=== PATIENT | male | born 1950 | race Caucasian/White ===

== ENCOUNTER 2016-12-14 14:02 | Emergency (ER) | payer MEDICARE, OTHER ==
[2016-12-14 14:10] VITALS: BP 155/83
--- NOTE | 2016-12-14 14:17 | UC ---
Laceration HPI - HPI Summary HPI Summary: patient was washing dishes and cut his finger on glass, it was a clean cut that lifted a flap of skin from the finger, flattens easily and edges well approximated. - History Of Current Complaint Chief Complaint: UCLaceration Stated Complaint: RIGHT INDEX FINGER LACERATION Time Seen by Provider: 12/14/16 14:12 Laceration Location: Finger - right index Mechanism Of Injury: Sharp Trauma Onset/Duration: Sudden Onset Severity: Mild Pain Intensity: 3 Pain Scale Used: 0-10 Numeric Aggravating Factors: Nothing Related History: Dominant Hand Right - Allergies/Home Medications Allergies/Adverse Reactions: Allergies Allergy/AdvReac Type Severity Reaction Status Date / Time No Known Allergies Allergy Verified 12/14/16 14:10 Home Medications: Home Medications Sertraline* [Zoloft*] 25 mg PO DAILY 12/14/16 [History Confirmed 12/14/16] glipiZIDE TAB.XL* [Glucotrol XL*] 5 mg PO DAILY 12/14/16 [History Confirmed ] metFORMIN* [Glucophage*] 500 mg PO BID 12/14/16 [History Confirmed 12/14/16] PMH/Surg Hx/FS Hx/Imm Hx Endocrine History Of: Reports: Diabetes Cardiovascular History Of: Reports: Hypertension - Surgical History Surgical History: Yes Surgery Procedure, Year, and Place: back surgery. carpal tunnel. right wrist gyst removal. sinus surgery - Family History Known Family History: Positive: Diabetes - Social History Alcohol Use: None Substance Use Type: None Smoking Status (MU): Never Smoked Tobacco Review of Systems Constitutional: Negative Skin: Other - laceration Eyes: Negative ENT: Negative Respiratory: Negative Cardiovascular: Negative Gastrointestinal: Negative Genitourinary: Negative Motor: Negative Neurovascular: Negative Musculoskeletal: Negative Neurological: Negative Psychological: Negative All Other Systems Reviewed And Are Negative: Yes Physical Exam Triage Information Reviewed: Yes Appearance: Well-Appearing, Well-Nourished, Pain Distress Vital Signs: Initial Vital Signs Temp 98.6 F 12/14/16 14:07 Pulse 77 12/14/16 14:07 Resp 14 12/14/16 14:07 BP 155/83 12/14/16 14:07 Pulse Ox 100 12/14/16 14:07 Vital Signs Reviewed: Yes Eye Exam: Normal Eyes: Positive: Conjunctiva Clear ENT Exam: Normal ENT: Positive: Hearing grossly normal, Pharyngeal erythema, TMs normal Dental Exam: Normal Neck exam: Normal Neck: Positive: Supple, Nontender, No Lymphadenopathy Respiratory Exam: Normal Respiratory: Positive: Chest non-tender, Lungs clear, Normal breath sounds Cardiovascular Exam: Normal Cardiovascular: Positive: RRR, No Murmur, Pulses Normal Abdominal Exam: Normal Abdomen Description: Positive: Nontender, No Organomegaly, Soft Bowel Sounds: Positive: Present Musculoskeletal Exam: Normal Musculoskeletal: Positive: Strength Intact, ROM Intact, No Edema Neurological Exam: Normal Neurological: Positive: Alert, Muscle Tone Normal Psychological Exam: Normal Skin Exam: Normal Laceration Repair - Laceration Repair 1 Description: Linear Laceration Size After Repair: Length (cm) - 2 cm Modified For Repair: Yes Cleansing Completed Via Routine Prep: Yes Irrigation With Pressure Irrigation Device: Yes Closure Material: Skin Adhesive, SteriStrips - 2 Closure Method: Single Layer Suture Of: Skin Laceration Course/Dx - Course/Dx Course Of Treatment: hx obtained, exam performed, skin gule and steri strips applied. - Differential Dx - Laceration/Wound Differental Diagnoses: Cellulitis, Laceration Provider Diagnoses: laceration Discharge - Discharge Plan Condition: Stable Disposition: HOME Patient Education Materials: Finger Laceration (ED) Additional Instructions: change the dressing daily, or more often if soiled. Allow the steri strips and glue to come off on its own. follow up with any signs of infections, redness, swelling, increase in pain, drainage or fever.
== END 2016-12-14 14:32 | disposition home or self-care (01) ==
LOC: UCCORT 14:02
DX: S61.210A Laceration without foreign body of right index finger without damage to nail, initial encounter (principal); E11.9 Type 2 diabetes mellitus without complications; W25.XXXA Contact with sharp glass, initial encounter; Y93.G1 Activity, food preparation and clean up; Y92.9 Unspecified place or not applicable
CPT/HCPCS: 99211; G0463

== ENCOUNTER 2018-01-23 12:17 | Inpatient (IN) | payer MEDICARE ==
[2018-01-23 13:27] LABS: ABS Basophils 0.1 10^3/ul (0-0.2); ABS Eosinophils 0.1 10^3/ul (0-0.6); ABS Lymphocytes 0.9 10^3/ul (1.0-4.8); ABS Monocytes 0.6 10^3/ul (0-0.8); ABS Neutrophils 8.4 10^3/ul (1.5-7.7); ABS Nucleated RBC 0 10^3/ul; Hematocrit 41 % (42-52); Hemoglobin 13.7 g/dl (14.0-18.0); Mean Corpuscular HGB Conc 34 g/dl (31-36); Mean Corpuscular Hemoglobin 30 pg (27-31); Mean Corpuscular Volume 90 fL (80-94); Mean Platelet Volume 8 um3 (7.4-10.4); Nucleated Red Blood Cells % 0; Platelet Count 247 10^3/ul (150-450); Red Blood Count 4.54 10^6/ul (4.0-5.4); Red Cell Distribution Width 13 % (10.5-15); White Blood Count 10.2 10^3/ul (3.5-10.8)
--- NOTE | 2018-01-23 13:29 | RAD ---
Indication: Trauma, head injury. CT of the brain was performed without IV contrast. Ventricular structures are midline. No midline shift is noted. The extra-axial spaces are unremarkable. There is no evidence of intracranial mass or hemorrhage. The bony calvaria is otherwise unremarkable. Mastoid air cells are unremarkable Air-fluid level is noted in the right maxillary sinus. Soft tissue swelling over the right maxillary sinus is noted and right eyelid. I cannot totally exclude a fracture of the inferior wall of the right orbit. Correlation with facial CT is suggested. Zygomatic arch is unremarkable. IMPRESSION: No intracranial mass or hemorrhage. Air-fluid level in the right maxillary sinus is noted. I cannot exclude fracture of the right inferior orbit with soft tissue swelling over the right maxillary sinus. Correlation with facial bone CT may be indicated.
[2018-01-23 13:32] LABS: INR 0.87 (0.77-1.02)
--- NOTE | 2018-01-23 13:36 | RAD ---
Indication: Neck pain and injury. CT of the cervical spine was obtained in the axial plane. Sagittal and coronal reconstructed images were obtained. The skull base demonstrates no fracture. There may be some fluid in the left mastoid air cells consistent with mastoid sinusitis. No fracture is noted. C1 ring is intact without fracture. Degenerative changes of the atlantoaxial joint is noted. The vertebral bodies appear normal in height. There is bilateral uncovertebral joint hypertrophy at C3-C4 and C4-C5 narrowing both intervertebral foramen. Bilateral uncovertebral joint hypertrophy C5-C6 and C6-C7 is noted. No fracture is noted. Spinal canal appears to be intact. Lung apices are unremarkable. IMPRESSION: There is no fracture of the cervical spine noted. There is suggestion of some left-sided mastoid sinusitis noted. Bilateral uncovertebral joint hypertrophy at multiple levels is noted.
[2018-01-23 13:53] LABS: EGFR Non-African American 59.6 (>60)
[2018-01-23] MEDS ORDERED: Ondansetron INJ* 2 MG/ML VIAL IV ONE ×2 (14:24→15:45)
[2018-01-23] MEDS ORDERED: Morphine INJ* 4 MG/ML 1 ML CARPUJECT IV ONE (15:15)
[2018-01-23] MEDS ORDERED: Morphine INJ* 4 MG/ML 1 ML SYRINGE (NEW SYRINGE VERSION) ONE (15:27)
[2018-01-23 15:33] LABS: Urine Appearance Clear; Urine Blood 1+ (Negative); Urine Color Straw; Urine Ketones Trace (Negative); Urine Protein Negative (Negative); Urine Specific Gravity 1.013 (1.010-1.030); Urine Urobilinogen Negative (Negative)
--- NOTE | 2018-01-23 16:05 | RAD ---
INDICATION: Shoulder pain after a fall COMPARISON: None. TECHNIQUE: 4 views of the right shoulder were obtained. FINDINGS: The adequately corticated bones are in normal alignment. Joint spaces appear maintained. No fracture, dislocation or focal bony abnormality is seen. Overlying the superior lateral right humeral head is a linear focus of calcium measuring 3 mm in length. IMPRESSION: 3 MM LENGTH FOCUS OF CALCIUM OVERLYING THE SUPERIOR LATERAL HUMERAL HEAD COULD BE SEEN IN THE SETTING OF CALCIFIC TENDINITIS. THERE IS NO RADIOGRAPHICALLY APPARENT FRACTURE OR DISLOCATION. If the patient's symptoms persist, follow-up imaging is recommended.
[2018-01-23] MEDS ORDERED: PROCHLORPERAZINE INJ 5 MG/ML 2 ML VIAL IV PRN ×2 (16:56→18:02)
[2018-01-23] MEDS ORDERED: NS 0.9% 1000 ML* 1,000 ML IV ONE (17:19)
[2018-01-23] MEDS ORDERED: hydrALAZINE IV* 20 MG/ML VIAL IV SLOW PU PRN ×2 (18:02→23:37)
[2018-01-23] MEDS ORDERED: Dextrose 50% Syringe 50 ML* 25 GM/50 ML SYRINGE IV PUSH PRN (18:05)
[2018-01-23] MEDS ORDERED: NS 0.9% 1000 ML* 1,000 ML IV SCH (18:15)
--- NOTE | 2018-01-23 18:35 | RAD ---
INDICATION: Possible facial bone injury COMPARISON: CT brain same date TECHNIQUE: Axial source images were acquired from the vertex of the mandible through the orbits. Coronal and sagittal reconstructed images were acquired. FINDINGS: Bones: There is no acute facial bone fracture. Orbits: The globes and intraconal structures appear intact. The optic nerves are symmetric. Extraocular muscles appear normal. There is no intraconal inflammatory change or retrobulbar mass.. Paranasal sinuses: There are findings of acute and chronic sinusitis. There is mucosal thickening in the right maxillary antrum with an air-fluid level. There is opacification multiple ethmoid air cells. There is bilateral frontal sinus mucosal thickening with short air-fluid level. There is sphenoid sinus mucoperiosteal thickening there is narrowing the right ostiomeatal complex. There is post surgical change or there is a defect in the medial wall left maxillary antrum with free communication with the nasal passageway. There is no normal left sided ostiomeatal complex. Brain: There are no acute abnormalities of the visualized brain parenchyma. Soft tissues: Normal Other: None The visualized soft tissue elements about the neck appear normal. IMPRESSION: PANSINUSITIS WITH ACUTE AND CHRONIC FINDINGS. NO ACUTE FACIAL BONE FRACTURE.
[2018-01-23] MEDS ORDERED: amLODIPine TAB* 5 MG PO SCH (19:00)
--- NOTE | 2018-01-23 19:09 | RAD ---
INDICATION: Traumatic left thumb fracture COMPARISON: None TECHNIQUE: AP, lateral, and oblique views were obtained. FINDINGS: There is a comminuted, intra-articular fracture involving the distal phalanx of the thumb. There is associated soft tissue swelling. 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 There is soft tissue swelling at the fracture site. IMPRESSION: FRACTURE AT THE PIP JOINT DESCRIBED
--- NOTE | 2018-01-23 19:25 | ED ---
Mark Walton Stephanie, scribed for Johny Lynn MD on 01/23/18 at 1309 . Complex/Multi-Sys Presentation - HPI Summary HPI Summary: The pt is a 67 y/o M BIBA to the ED with c/o R shoulder pain. The pt had [place]itnessed [place] [employer] [place]. Symptoms include memory loss, GALLEGOS, nausea, epistaxis and ecchymotic R eye. - History Of Current Complaint Chief Complaint: EDHeadInjury Time Seen by Provider: 01/23/18 12:36 Hx Obtained From: Patient Onset/Duration: Sudden Onset - s/p fall, Still Present Timing: Constant Location: Pain At: - R shoulder Associated Signs And Symptoms: Positive: Headache, Nausea, Recent Trauma - unwitnessed fall - Allergies/Home Medications Allergies/Adverse Reactions: Allergies Allergy/AdvReac Type Severity Reaction Status Date / Time Penicillins Allergy Unknown See Comment Verified 01/23/18 12:44 codeine Allergy Unknown Verified 01/23/18 18:15 Reaction Details Home Medications: Home Medications Acetaminophen [Acetaminophen Extra Strength] 500 mg PO Q4HR PRN 01/23/18 [ History Confirmed 01/23/18] Aspirin EC Low Dose* [Ecotrin EC Low Dose 81 MG*] 81 mg PO DAILY 01/23/18 [ History Confirmed 01/23/18] Atorvastatin* [Lipitor*] 40 mg PO DAILY 01/23/18 [History Confirmed 01/23/18] Cetirizine* [ZyrTEC 10 MG TAB*] 10 mg PO DAILY PRN 01/23/18 [History Confirmed 01/23/18] Docusate CAP* [Colace Cap*] 100 mg PO DAILY PRN 01/23/18 [History Confirmed ] Ferrous Sulfate TAB* 325 mg PO DAILY 01/23/18 [History Confirmed 01/23/18] Fluticasone NASAL SPRAY 50MCG* [Flonase NASAL SPRAY 50MCG*] 2 spray BOTH NARES DAILY 01/23/18 [History Confirmed 01/23/18] Tamsulosin CAP* [Flomax CAP*] 0.4 mg PO DAILY 01/23/18 [History Confirmed ] diPHENhydraMINE PO* [Benadryl PO 25 MG TAB*] 25 mg PO DAILY PRN 01/23/18 [ History Confirmed 01/23/18] glipiZIDE TAB* [Glucotrol TAB*] 5 mg PO BID 01/23/18 [History Confirmed 01/23/18 ] PMH/Surg Hx/FS Hx/Imm Hx Endocrine/Hematology History: Reports: Hx Diabetes Cardiovascular History: Reports: Hx Hypertension - Surgical History Surgery Procedure, Year, and Place: back surgery. carpal tunnel. right wrist gyst removal. sinus surgery Infectious Disease History: No Infectious Disease History: Denies: Hx Clostridium Difficile, Hx Hepatitis, Hx Human Immunodeficiency Virus (HIV), Hx of Known/Suspected MRSA, Hx Shingles, Hx Tuberculosis, Hx Known/ Suspected VRE, Hx Known/Suspected VRSA, History Other Infectious Disease, Traveled Outside the [place] in Last 30 Days - Family History Known Family History: Positive: Diabetes - Social History Occupation: Employed Full-time Lives: With Family Alcohol Use: None Substance Use Type: Reports: None Smoking Status (MU): Never Smoked Tobacco Review of Systems Negative: Fever Positive: Other - ecchymotic R eye Positive: Epistaxis Positive: Nausea Positive: Other - R shoulder pain Neurological: Other - memory loss Positive: Headache All Other Systems Reviewed And Are Negative: Yes Physical Exam - Summary Physical Exam Summary: Appearance: The patient is well-nourished in no acute distress and in no acute pain. Skin: The skin is warm and dry and skin color reflects adequate perfusion. HEENT: R periorbital hematoma. Abrasion on R parietal scalp. The pupils are equal and reactive. The conjunctivae are clear and without drainage. Nares are patent and without drainage. Mouth reveals moist mucous membranes and the throat is without erythema and exudate. The external ears are intact. The ear canals are patent and without drainage. The tympanic membranes are intact. Neck: the neck is supple with full range of motion and non-tender. There are no carotid bruits. There is no neck vein distension. Respiratory: Chest is non-tender. Lungs are clear to auscultation and breath sounds are symmetrical and equal. Cardiovascular: Heart is regular rate and rhythm. There is no murmur or rub auscultated. There is no peripheral edema and pulses are symmetrical and equal. Abdomen: The abdomen is soft and non-tender. There are normal bowel sounds heard in all four quadrants and there is no organomegaly palpated. Musculoskeletal: There is no back tenderness noted. Extremities are non-tender with full range of motion. There is good capillary refill. There is no peripheral edema or calf tenderness elicited. Neurological: Patient is alert and oriented to person, place and time. The patient has symmetrical motor strength in all four extremities. Cranial nerves are grossly intact. Deep tendon reflexes are symmetrical and equal in all four extremities. Psychiatric: The patient has an appropriate affect and does not exhibit any anxiety or depression Triage Information Reviewed: Yes Vital Signs On Initial Exam: Initial Vitals Temp Pulse Resp BP Pulse Ox 98.6 F 78 12 194/88 100 01/23/18 12:22 01/23/18 12:22 01/23/18 12:22 01/23/18 12:22 01/23/18 12:22 Vital Signs Reviewed: Yes Diagnostics - Vital Signs Vital Signs Temp Pulse Resp BP Pulse Ox 01/23/18 12:22 98.6 F 78 12 194/88 100 - Laboratory Lab Results: Lab Results 01/23/18 01/23/18 01/23/18 Range/Units 13:16 13:16 13:16 WBC 10.2 (3.5-10.8) 10^3/ul RBC 4.54 (4.0-5.4) 10^6/ul Hgb 13.7 L (14.0-18.0) g/dl Hct 41 L (42-52) % MCV 90 (80-94) fL MCH 30 (27-31) pg MCHC 34 (31-36) g/dl RDW 13 (10.5-15) % Plt Count 247 (150-450) 10^3/ul MPV 8 (7.4-10.4) um3 Neut % (Auto) 82.8 (38-83) % Lymph % (Auto) 9.0 L (25-47) % [place] % (Auto) 5.9 (0-7) % Eos % (Auto) 1.0 (0-6) % Baso % (Auto) 1.3 (0-2) % Absolute Neuts (auto) 8.4 H (1.5-7.7) 10^3/ul Absolute Lymphs (auto) 0.9 L (1.0-4.8) 10^3/ul Absolute Monos (auto) 0.6 (0-0.8) 10^3/ul Absolute Eos (auto) 0.1 (0-0.6) 10^3/ul Absolute Basos (auto) 0.1 (0-0.2) 10^3/ul Absolute Nucleated RBC 0 10^3/ul Nucleated RBC % 0 INR (Anticoag Therapy) 0.87 (0.77-1.02) Sodium 132 L (133-145) mmol/L Potassium 4.3 (3.5-5.0) mmol/L Chloride 100 L (101-111) mmol/L Carbon Dioxide 21 L (22-32) mmol/L Anion Gap 11 (2-11) mmol/L BUN 27 H (6-24) mg/dL Creatinine 1.21 H (0.67-1.17) mg/dL Est GFR ( Amer) 76.7 (>60) Est GFR (Non-Af Amer) 59.6 (>60) BUN/Creatinine Ratio 22.3 H (8-20) Glucose 187 H (70-100) mg/dL POC Glucose (mg/dL) (70-100) mg/dL Lactic Acid (0.5-2.0) mmol/L Calcium 9.6 (8.6-10.3) mg/dL Magnesium 1.9 (1.9-2.7) mg/dL Total Bilirubin 0.50 (0.2-1.0) mg/dL AST 27 (13-39) U/L ALT 21 (7-52) U/L Alkaline Phosphatase 117 H (34-104) U/L Troponin I 0.01 (<0.04) ng/mL Total Protein 7.8 (6.4-8.9) g/dL Albumin 4.4 (3.2-5.2) g/dL Globulin 3.4 (2-4) g/dL Albumin/Globulin Ratio 1.3 (1-3) TSH 6.12 H (0.34-5.60) mcIU/mL Free T4 0.68 (0.61-1.12) ng/dL Thyroxine (T4) 6.69 (6.09-12.23) mcg/mL Free T3 3.50 (2.5-3.9) pg/mL Total T3 1.19 (0.87-1.78) ng/mL Urine Color Urine Appearance Urine pH (5-9) Ur Specific [place] (1.010-1.030) Urine Protein (Negative) Urine Ketones (Negative) Urine Blood (Negative) Urine Nitrate (Negative) Urine Bilirubin (Negative) Urine Urobilinogen (Negative) Ur Leukocyte Esterase (Negative) Urine WBC (Auto) (Absent) Urine RBC (Auto) (Absent) Urine Bacteria (Absent) Urine Glucose (Negative) 01/23/18 01/23/18 01/23/18 Range/Units 13:16 15:23 17:28 WBC (3.5-10.8) 10^3/ul RBC (4.0-5.4) 10^6/ul Hgb (14.0-18.0) g/dl Hct (42-52) % MCV (80-94) fL MCH (27-31) pg MCHC (31-36) g/dl RDW (10.5-15) % Plt Count (150-450) 10^3/ul MPV (7.4-10.4) um3 Neut % (Auto) (38-83) % Lymph % (Auto) (25-47) % [place] % (Auto) (0-7) % Eos % (Auto) (0-6) % Baso % (Auto) (0-2) % Absolute Neuts (auto) (1.5-7.7) 10^3/ul Absolute Lymphs (auto) (1.0-4.8) 10^3/ul Absolute Monos (auto) (0-0.8) 10^3/ul Absolute Eos (auto) (0-0.6) 10^3/ul Absolute Basos (auto) (0-0.2) 10^3/ul Absolute Nucleated RBC 10^3/ul Nucleated RBC % INR (Anticoag Therapy) (0.77-1.02) Sodium (133-145) mmol/L Potassium (3.5-5.0) mmol/L Chloride (101-111) mmol/L Carbon Dioxide (22-32) mmol/L Anion Gap (2-11) mmol/L BUN (6-24) mg/dL Creatinine (0.67-1.17) mg/dL Est GFR ( Amer) (>60) Est GFR (Non-Af Amer) (>60) BUN/Creatinine Ratio (8-20) Glucose (70-100) mg/dL POC Glucose (mg/dL) 216 H (70-100) mg/dL Lactic Acid 2.5 H* (0.5-2.0) mmol/L Calcium (8.6-10.3) mg/dL Magnesium (1.9-2.7) mg/dL Total Bilirubin (0.2-1.0) mg/dL AST (13-39) U/L ALT (7-52) U/L Alkaline Phosphatase (34-104) U/L Troponin I (<0.04) ng/mL Total Protein (6.4-8.9) g/dL Albumin (3.2-5.2) g/dL Globulin (2-4) g/dL Albumin/Globulin Ratio (1-3) TSH (0.34-5.60) mcIU/mL Free T4 (0.61-1.12) ng/dL Thyroxine (T4) (6.09-12.23) mcg/mL Free T3 (2.5-3.9) pg/mL Total T3 (0.87-1.78) ng/mL Urine Color Straw Urine Appearance Clear Urine pH 8.0 (5-9) Ur Specific [place] 1.013 (1.010-1.030) Urine Protein Negative (Negative) Urine Ketones Trace H (Negative) Urine Blood 1+ H (Negative) Urine Nitrate Negative (Negative) Urine Bilirubin Negative (Negative) Urine Urobilinogen Negative (Negative) Ur Leukocyte Esterase Negative (Negative) Urine WBC (Auto) Trace(0-5/hpf) (Absent) Urine RBC (Auto) 2+(6-10/hpf) H (Absent) Urine Bacteria Absent (Absent) Urine Glucose 1+(50 mg/dl) H (Negative) Result Diagrams: 01/23/18 13:16 01/23/18 13:16 Lab Statement: Any lab studies that have been ordered have been reviewed, and results considered in the medical decision making process. - CT Brain CT Interpretation: Positive (See Comments) CT Interpretation Completed By: Radiologist - No intracranial mass or hemorrhage. Air-fluid level in the right maxillary sinus is noted. I cannot exclude fracture of the right inferior orbit with soft tissue swelling over the right maxillary sinus. Correlation with facial bone CT may be indicated. Cervical Spine CT Interpretation: Positive (See Comments) CT Interpretation Completed By: Radiologist - There is no fracture of the cervical spine noted. There is suggestion of some left-sided mastoid sinusitis noted. Bilateral uncovertebral joint hypertrophy at multiple levels is noted. - EKG 13:15 Cardiac Rate: NL EKG Rhythm: Sinus Rhythm - 74 BPM EKG Interpretation: normal EKG Complex Multi-Symp Course/Dx Course Of Treatment: Mr. Cooley had a significant fall on the ice today. He was shoveling snow and doesn't remember what happened so syncope is still in the differential. He presented with concussive symptoms and his CT was negative. He didn't improve much here with medications and fluids and I have asked the hospitalist group to see him. - Diagnoses Provider Diagnoses: Concussion - Physician Notifications Discussed Care Of Patient With: Sudhir Middleton - Suggests to admit the pt. Time Discussed With Above Provider: 16:51 Discharge - Discharge Plan Condition: Stable Disposition: ADMITTED TO [facility] The documentation as recorded by the Mark becerra Stephanie accurately reflects the service I personally performed and the decisions made by me, Johny Lynn MD.
[2018-01-23] MEDS: Ondansetron INJ* 2 MG/ML VIAL IV PRN (19:33)
[2018-01-23] MEDS ORDERED: amLODIPine TAB* 5 MG PO ONE (20:59)
--- NOTE | 2018-01-24 02:54 | HP ---
CC: Shelli Addison NP * HISTORY AND PHYSICAL: DATE OF ADMISSION: 01/23/18 PRIMARY CARE PROVIDER: Shelli Addison NP ATTENDING PHYSICIAN WHILE IN THE HOSPITAL: Andre Choi MD * (report dictated by Filemon Diaz NP) CHIEF COMPLAINT: Fall. HISTORY OF PRESENT ILLNESS: Mr. Cooley is a 67-year-old male patient. He has a history of Dubois's esophagus, hypertension, diabetes, hyperlipidemia, and depression. He comes in today. He says that he was working at the local [employer]. He had an episode where he was shoveling and he fell. He does not really recall the fall. He remembers coming over in the ambulance and coming in to the hospital. He thinks the paymaster of purses called the ambulance. He is not quite sure. The patient states prior to the episode, he did not have any chest pain or shortness of breath. There is a question of whether or not he did really pass out. He denies any recent fevers or chills. There has been no nausea or vomiting with the exception after the fall today, he has vomited about 3 times here in the ED. There have been no reports of again chest pain recently. He states in the last couple of days, he has been feeling himself. The daughter, who saw the patient before he went to work today, said that he seemed to be himself but did bring a concern up. She said last night she may have noticed a facial droop, but did not notice anything today. The patient states that he does feel somewhat dizzy. He states it stayed the same with position change, but he denied having any sense of visual changes. He denied having any weakness to one side. No more facial droop was reported by the . Again according to the , he is at his baseline. She states that he has not had any recent change in medications and there have been no reports of dysuria or frequency, no history of syncope in the past. He came in to the ED today because of the possible syncopal episode and the fact that he fell and there is concern that he may actually have the postconcussive syndrome. We were asked to evaluate for admission. PAST MEDICAL HISTORY: Significant for: 1. Dubois's. 2. Hypertension. 3. Hyperlipidemia. 4. Diabetes. 5. Depression. PAST SURGICAL HISTORY: 1. The patient has had back surgery. 2. He has had cyst removed out of his neck. HOME MEDICATIONS: Include: 1. Benadryl 25 mg p.o. daily as needed. 2. Aspirin 81 mg daily. 3. Tylenol Extra Strength 500 mg every 4 hours as needed. 4. Glipizide 5 mg p.o. b.i.d. 5. Flomax 0.4 mg p.o. daily. 6. Flonase 2 sprays both nares daily. 7. Ferrous sulfate 325 mg p.o. daily. 8. Colace 100 mg p.o. daily as needed. 9. Zyrtec 10 mg p.o. daily as needed. 10. Lipitor 40 mg p.o. daily. ALLERGIES TO MEDICATIONS: Include CODEINE, PENICILLIN here in the ED, but he denied this. FAMILY HISTORY: Mother had hypertension. Father had history of cancer. SOCIAL HISTORY: He is a former smoker. He drinks alcohol. Surrogate decision maker is his . REVIEW OF SYSTEMS: There is no documented fever. He denied any significant weight change. There is no double vision. There is no ear discharge. He denies having any rhinorrhea. No sore throat. No thyroid enlargement. He denied having any chest pain. There is no orthopnea. There is no nocturnal dyspnea. He denies having any abdominal pain. There was no nausea. There is vomiting now after the fall, but no dysuria, no frequency. There was no seizure. There is a question of loss of consciousness. No pruritus and no skin ulcerations. Review of 14 systems completed, all others negative. PHYSICAL EXAMINATION GENERAL: At this time, Mr. Cooley is a 67-year-old male patient. He is sitting in the ED stretcher. He does not appear to be in any acute distress. VITAL SIGNS: Blood pressure 184/85, pulse 79, respirations 18, O2 sat 98%, temperature 98.6. HEENT: Head: He does have an area of ecchymosis noted to his right orbital area. Eyes: Pupils reactive to light. EOMs were intact. Sclerae anicteric and not pale. Throat: Oral mucosa appears to be moist. No oropharyngeal erythema. NECK: Supple. LUNGS: Clear to auscultation bilaterally. No wheezes, rales, or rhonchi. HEART: Sounds S1, S2. Regular rate and rhythm. No murmurs, rubs, or gallops. ABDOMEN: Soft, flat, nontender. Bowel sounds present. EXTREMITIES: Pulses were 2+ throughout. Moving all 4 extremities with 5/5 strength. He does have ecchymosis noted to his left thumb. NEUROLOGIC: The patient is awake. He is alert. He is now oriented x3. He does not clearly recall all the details of the fall. He does remember shoveling and then fall. He knows he is here for fall. On exam, he had no facial drooping. Lyqkwu-po-[id number] was intact bilaterally. Utti-dl-zaof intact bilaterally. No pronator drift. Cranial nerves were intact. There were no obvious gross focal deficits. SKIN: Intact. LABORATORY DATA/DIAGNOSTIC STUDIES: Labs, WBC 10.2, RBC of 4.54, hemoglobin of 13.7, hematocrit 41, platelet count 247. INR 0.87. Sodium 132, potassium 4.3, chloride 100, bicarb 21, BUN 27, creatinine 1.21, which is slightly up from his baseline, glucose 187. Lactic 2.5. Calcium 9.6. Mag 1.9. Total bili 0.5, AST 27, ALT 21, alk phos 117. Troponin 0.01. Albumin of 4.4. TSH of 6.12. Urine showed trace ketones, 1+ blood, 2+ rbc's, 1+ glucose. He had multiple imaging here in the ED starting out brain CT, showed no intracranial mass or hemorrhage. Air fluid level in the right maxillary sinus noted. I cannot exclude fracture of the right inferior orbit with soft tissue swelling over the right maxillary sinus. Correlate with facial bone CT as it may be indicated. CT cervical spine, no fracture is noted of the cervical spine. There is suggestion of some left-sided mastoid sinusitis, bilateral. Uncovertebral joint hypertrophy of multiple levels noted. Shoulder x-ray today showed 3 mm length focus of calcium overlying the superior lateral humeral head. It could be seen in the setting of calcified tendinitis. There is no radiographically apparent fracture or dislocation. EKG obtained shows a normal sinus rhythm with a PAC, no ST elevations or T wave inversions were noted. Reviewed to the previous EKG, it is similar. Old medical records were reviewed. ASSESSMENT AND PLAN: Mr. Cooley is a 67-year-old male patient coming in to the ED today with complaints of a fall, question of syncope. He will be admitted under observation status for: 1. Fall, syncope. At this point, I will go ahead and check an echo. Place the patient on telemetry. We will get orthostatic blood pressures and continue to monitor him. We will also get neuro checks. 2. Question of facial droop. Again, he is neurologically intact. At this point, he is complaining of dizziness, makes me concern, may be he had dizziness and that is why he fell. My plan would to be go ahead and get an MRI of the brain, neuro checks. If the MRI is positive, I will get a formal Neurology consult and we will consider doing a CTA of the head and neck. We will continue to monitor for the time being. I will get neuro checks. He is on aspirin already. We are checking lipids in the morning. 3. Altered mental status. I think he probably has postconcussive syndrome from the fall. He did hit his head pretty hard. It looks like he has got again pretty good ecchymotic area to the right orbit. I am going to get a CT of that facial bone to make sure he does not have any fracture. If he does, we will get in touch with either ENT or Facial Surgery. 4. Dubois's esophagus. Continue PPI therapy. 5. Hypertension. His blood pressures are well controlled here. It is 185 systolic. When he came in, it was in the 200s. I am going to give him Norvasc , p.r.n. hydralazine. We will follow. 6. Diabetes. Lispro sliding scale has been ordered. 7. Hyperlipidemia. Continue statin therapy. 8. Depression. Continue supportive care. 9. DVT prophylaxis. He will be placed on SCDs. 10. Code status. Full code. 11. Fluids, electrolytes, and nutrition. Clear liquid diet because of the nausea and vomiting for the time being. 12. Nausea, vomiting. Again, I suspect this is probably related to again concussion. We will follow. His abdominal exam was benign. 13. Dehydration. Again, he appears mildly dehydrated. He did get some IV fluids here in the ED. We will repeat his BUN and creatinine tomorrow and his lytes. 14. Elevated TSH. I did check T3, T4 and free T3, T4 as well. TIME SPENT: Time spent on admission 60 minutes, greater than half the time was spent [id number] with the patient obtaining my history and physical; other half time was spent going over the plan of care with the patient and implementing plan of care. I did discuss the plan of care with my attending, Dr. Choi; he is in agreement. FILEMON DIAZ, MEDICAL RECEPTIONIST [id number]/CPS #: [id number] SHRAVAN
[2018-01-24 06:56] LABS: ABS Basophils 0.1 10^3/ul (0-0.2); ABS Eosinophils 0 10^3/ul (0-0.6); ABS Lymphocytes 0.6 10^3/ul (1.0-4.8); ABS Neutrophils 13.3 10^3/ul (1.5-7.7); ABS Nucleated RBC 0 10^3/ul; Eosinophil % 0 % (0-6); Hematocrit 41 % (42-52); Hemoglobin 13.6 g/dl (14.0-18.0); Lymphocyte % 4.1 % (25-47); Mean Corpuscular HGB Conc 34 g/dl (31-36); Mean Corpuscular Hemoglobin 30 pg (27-31); Mean Corpuscular Volume 91 fL (80-94); Mean Platelet Volume 8 um3 (7.4-10.4); Nucleated Red Blood Cells % 0.1; Platelet Count 292 10^3/ul (150-450); Red Blood Count 4.49 10^6/ul (4.0-5.4); Red Cell Distribution Width 14 % (10.5-15); White Blood Count 14.9 10^3/ul (3.5-10.8)
[2018-01-24 07:06] LABS: EGFR Non-African American 64.5 (>60)
[2018-01-24] MEDS: Tamsulosin CAP* 0.4 MG PO SCH (08:42)
[2018-01-24] MEDS: amLODIPine TAB* 5 MG PO SCH (08:42)
[2018-01-24] MEDS: Insulin LISPRO* 1 UNITS UNIT SUBCUT SCH ×3 (08:42→18:09)
[2018-01-24] MEDS: Ferrous Sulfate TAB* 325 MG PO SCH (08:42)
[2018-01-24] MEDS: Atorvastatin* 40 MG TAB PO SCH (08:42)
[2018-01-24] MEDS: Acetaminophen TAB* 325 MG PO PRN ×2 (08:47→15:49)
[2018-01-24] MEDS ORDERED: Aspirin EC Low Dose* 81 MG TAB.EC PO SCH (09:00)
--- NOTE | 2018-01-24 10:28 | ECHO ---
Patient: BOBBY CONSTANTINO [facility] Rec#: [id number] : 1950 Date: 01/24/2018 Age: 67y Height: 173 cm / 68.1 in Weight: 77 kg / 169.7 lbs Sex: M BSA: 1.9 Room#: [facility] Admit Date#: 01/23/2018 Type: Inpatient Referring: Filemon Diaz NP Reading: Tavares So DO Placement Specialist: Peggy Costa RN RDCS CC: Shelli Addison Transthoracic Echocardiogram Indication: Syncope BP: 120/66 HR: 85 Rhythm: NSR Findings History: HTN, HLD, DM, Dubois's esophagus, former smoker, depression Technical Comments: The study quality is fair. The study is technically limited due to the patient's smoking history. Left Ventricle: The left ventricular chamber size is normal. Moderate concentric left ventricular hypertrophy is observed. There is increased basal septal hypertrophy noted without evidence of an increased gradient across the left ventricular outflow tract. Global left ventricular wall motion and contractility are within normal limits. The left ventricle appears hyperdynamic. The estimated ejection fraction is greater than 65%. Abnormal left ventricular diastolic filling is observed, consistent with impaired relaxation. Left Atrium: The left atrium is mildly dilated. Right Ventricle: The right ventricular chamber size and systolic function are within normal limits. Right Atrium: The right atrial cavity size is normal. Aortic Valve: The aortic valve is trileaflet. The aortic valve leaflets are mildly thickened. There is a trace of aortic regurgitation. There is no evidence of aortic stenosis. Mitral Valve: Mild mitral annular calcification present. The mitral valve leaflets are mildly thickened. There is no evidence of mitral regurgitation. There is no evidence of mitral stenosis. Tricuspid Valve: The tricuspid valve leaflets are normal. There is trace tricuspid regurgitation. No pulmonary hypertension is noted. There is no tricuspid stenosis. Pulmonic Valve: The pulmonic valve structure is not well visualized. There is no evidence of pulmonic regurgitation. There is no pulmonic stenosis. Pericardium: There is no significant pericardial effusion. Aorta: There is no dilatation of the ascending aorta. There is no dilatation of the aortic arch. There is no dilation of the aortic root. Pulmonary Artery: The main pulmonary artery is not well visualized. Venous: The inferior vena cava appears normal in size. There is less than 50% respiratory change in the inferior vena cava dimension. Conclusions The left ventricular chamber size is normal. Moderate concentric left ventricular hypertrophy is observed. The left ventricle appears hyperdynamic. The estimated ejection fraction is greater than 65%. The left atrium is mildly dilated. The right ventricular chamber size and systolic function are within normal limits. No significant valvular abnormalities noted. Compared to prior study from 12/2003, LVH has worsened and LVEF is now hyperdynamic. Measurements Name Value Normal Range RVDdMajor (2D) 3.3 cm (2.2 - 4.4) RAd ISD 4CH 4.7 cm (3.4 - 4.9) RA (A4C)W 4.4 cm (2.9 - 4.6) IVSd (2D) 1.4 cm (0.6 - 1) LVPWd (2D) 1.4 cm (0.6 - 1) LVIDd (2D) 3.8 cm (3.6 - 5.4) LVIDs (2D) 1.7 cm - LV FS (2D) 55 % (25 - 45) Aortic Annulus 2.2 cm (1.4 - 2.6) Ao root diameter (2D) 3.2 cm (2.1 - 3.5) Ascending Ao 3.1 cm (2.1 - 3.4) Aortic arch 2.2 cm (1.8 - 3.4) LA dimension (AP) 2D 4.3 cm (2.3 - 3.8) LAd ISD 4CH 5.1 cm (2.9 - 5.3) LA ISD 4CH W 3.7 cm (2.5 - 4.5) Name Value Normal Range LA ESV SP 4CH (A/L) 36 ml - LA ESV SP 2CH (A/L) 41 ml - LA ESV BP (A/L) 40 ml - LA ESV BP (A/L) index 21 ml/m2 - LA ESV SP 4CH (MOD) 35 ml - LA ESV SP 2CH (MOD) 39 ml - Name Value Normal Range MV E-wave Vmax 0.77 m/sec - MV deceleration time 250 msec - MV A-wave Vmax 1 m/sec - MV E:A ratio 0.76 ratio - LV septal e' Vmax 0.05 m/sec - LV lateral e' Vmax 0.06 m/sec - LV E:e' septal ratio 15.4 ratio - LV E:e' lateral ratio 12.8 ratio - Name Value Normal Range AV Vmax 1.5 m/sec - AV VTI 30.9 cm - AV peak gradient 9.3 mmHg - AV mean gradient 4.9 mmHg - LVOT Vmax 1.4 m/sec - LVOT VTI 28.7 cm - LVOT peak gradient 7.6 mmHg - LVOT mean gradient 4.9 mmHg - ASIM Vmax 0.74 m/sec - Name Value Normal Range TR Vmax 2.1 m/sec - TR peak gradient 18 mmHg - RAP 8 mmHg - RVSP 26 mmHg - IVC diameter 1.7 cm - Name Value Normal Range PV Vmax 1.2 m/sec -
[2018-01-24] MEDS ORDERED: LORazepam TAB(*) 1 MG PO PRN (12:05)
--- NOTE | 2018-01-24 12:19 | DCNOTE ---
Subjective Date of Service: 01/24/18 Interval History: Some pain R shoulder, L thumb. No facial pain. He does not recall his fall yesterday, recalls waking up in the snow, getting up and going indoors. No prior episodes of syncope, lightheadedness Objective Active Medications: Acetaminophen (Tylenol Tab*) 650 mg PO Q4H PRN PRN Reason: FEVER/PAIN Last Admin: 01/24/18 08:47 Dose: 650 mg Amlodipine Besylate (Norvasc Tab*) [address] [facility] Last Admin: 01/24/18 08:42 Dose: 10 mg Aspirin (Aspirin Ec Low Dose*) [address] [facility] Last Admin: 01/24/18 08:42 Dose: 81 mg Atorvastatin Calcium (Lipitor*) [address] [facility] Last Admin: 01/24/18 08:42 Dose: 40 mg Dextrose (D50w Syringe 50 Ml*) 12.5 gm IV PUSH .FOR FS < 60 - SS PRN PRN Reason: FS < 60 Docusate Sodium (Colace Cap*) 100 mg PO DAILY PRN PRN Reason: CONSTIPATION Ferrous Sulfate (Ferrous Sulfate Tab*) [address] [facility] Last Admin: 01/24/18 08:42 Dose: 325 mg Hydralazine HCl (Apresoline Iv*) 10 mg IV SLOW PU Q4H PRN PRN Reason: BLOOD PRESSURE Insulin Human Lispro (Humalog*) 0 units [facility]BCUT [facility] PRN Reason: Protocol Last Admin: 01/24/18 08:42 Dose: 2 units Lorazepam (Ativan Tab(*)) 1 mg PO Q4H PRN PRN Reason: ANXIETY Ondansetron HCl (Zofran Inj*) 4 mg IV Q6H PRN PRN Reason: NAUSEA Last Admin: 01/23/18 19:33 Dose: 4 mg Prochlorperazine Edisylate (Compazine Inj*) 5 mg IV Q6H PRN PRN Reason: NAUSEA/VOMITING Tamsulosin HCl (Flomax Cap*) 0.[address] [facility] Last Admin: 01/24/18 08:42 Dose: 0.4 mg Vital Signs - 8 hr 01/24/18 01/24/18 01/24/18 07:19 08:00 11:30 Temperature 98.7 F 98.3 F Pulse Rate 93 81 Respiratory 16 16 16 Rate Blood Pressure 144/58 117/51 (mmHg) O2 Sat by Pulse 96 98 Oximetry Oxygen Devices in Use Now: None Appearance: Alert, in a chair. Neutral affect. Looks comfortable. Eyes: No Scleral Icterus Neck: NL Appearance and Movements; NL JVP, No Thyroid Enlargement, Masses Respiratory: Symmetrical Chest Expansion and Respiratory Effort, Clear to Auscultation, Clear to Percussion Extremities: No Clubbing, Cyanosis, - - Sl decreased active ROM R shoulder. L thumb in splint. Skin: No Nodules or Sclerosis, - - R periorbial ecchymosis, mainly laterally Neurological: Alert and Oriented x 3, NL Sensation Result Diagrams: 01/24/18 06:29 01/24/18 09:11 Additional Lab and Data: Lab Results 01/23/18 01/23/18 01/23/18 Range/Units 13:16 13:16 13:16 WBC 10.2 (3.5-10.8) 10^3/ul RBC 4.54 (4.0-5.4) 10^6/ul Hgb 13.7 L (14.0-18.0) g/dl Hct 41 L (42-52) % MCV 90 (80-94) fL MCH 30 (27-31) pg MCHC 34 (31-36) g/dl RDW 13 (10.5-15) % Plt Count 247 (150-450) 10^3/ul MPV 8 (7.4-10.4) um3 Neut % (Auto) 82.8 (38-83) % Lymph % (Auto) 9.0 L (25-47) % [place] % (Auto) 5.9 (0-7) % Eos % (Auto) 1.0 (0-6) % Baso % (Auto) 1.3 (0-2) % Absolute Neuts (auto) 8.4 H (1.5-7.7) 10^3/ul Absolute Lymphs (auto) 0.9 L (1.0-4.8) 10^3/ul Absolute Monos (auto) 0.6 (0-0.8) 10^3/ul Absolute Eos (auto) 0.1 (0-0.6) 10^3/ul Absolute Basos (auto) 0.1 (0-0.2) 10^3/ul Absolute Nucleated RBC 0 10^3/ul Nucleated RBC % 0 INR (Anticoag Therapy) 0.87 (0.77-1.02) Sodium 132 L (133-145) mmol/L Potassium 4.3 (3.5-5.0) mmol/L Chloride 100 L (101-111) mmol/L Carbon Dioxide 21 L (22-32) mmol/L Anion Gap 11 (2-11) mmol/L BUN 27 H (6-24) mg/dL Creatinine 1.21 H (0.67-1.17) mg/dL Est GFR ( Amer) 76.7 (>60) Est GFR (Non-Af Amer) 59.6 (>60) BUN/Creatinine Ratio 22.3 H (8-20) Glucose 187 H (70-100) mg/dL POC Glucose (mg/dL) (70-100) mg/dL Lactic Acid (0.5-2.0) mmol/L Calcium 9.6 (8.6-10.3) mg/dL Magnesium 1.9 (1.9-2.7) mg/dL Total Bilirubin 0.50 (0.2-1.0) mg/dL AST 27 (13-39) U/L ALT 21 (7-52) U/L Alkaline Phosphatase 117 H (34-104) U/L Troponin I 0.01 (<0.04) ng/mL Total Protein 7.8 (6.4-8.9) g/dL Albumin 4.4 (3.2-5.2) g/dL Globulin 3.4 (2-4) g/dL Albumin/Globulin Ratio 1.3 (1-3) TSH 6.12 H (0.34-5.60) mcIU/mL Free T4 0.68 (0.61-1.12) ng/dL Thyroxine (T4) 6.69 (6.09-12.23) mcg/mL Free T3 3.50 (2.5-3.9) pg/mL Total T3 1.19 (0.87-1.78) ng/mL Urine Color Urine Appearance Urine pH (5-9) Ur Specific [place] (1.010-1.030) Urine Protein (Negative) Urine Ketones (Negative) Urine Blood (Negative) Urine Nitrate (Negative) Urine Bilirubin (Negative) Urine Urobilinogen (Negative) Ur Leukocyte Esterase (Negative) Urine WBC (Auto) (Absent) Urine RBC (Auto) (Absent) Urine Bacteria (Absent) Urine Glucose (Negative) 01/23/18 01/23/18 01/23/18 Range/Units 13:16 15:23 17:28 WBC (3.5-10.8) 10^3/ul RBC (4.0-5.4) 10^6/ul Hgb (14.0-18.0) g/dl Hct (42-52) % MCV (80-94) fL MCH (27-31) pg MCHC (31-36) g/dl RDW (10.5-15) % Plt Count (150-450) 10^3/ul MPV (7.4-10.4) um3 Neut % (Auto) (38-83) % Lymph % (Auto) (25-47) % [place] % (Auto) (0-7) % Eos % (Auto) (0-6) % Baso % (Auto) (0-2) % Absolute Neuts (auto) (1.5-7.7) 10^3/ul Absolute Lymphs (auto) (1.0-4.8) 10^3/ul Absolute Monos (auto) (0-0.8) 10^3/ul Absolute Eos (auto) (0-0.6) 10^3/ul Absolute Basos (auto) (0-0.2) 10^3/ul Absolute Nucleated RBC 10^3/ul Nucleated RBC % INR (Anticoag Therapy) (0.77-1.02) Sodium (133-145) mmol/L Potassium (3.5-5.0) mmol/L Chloride (101-111) mmol/L Carbon Dioxide (22-32) mmol/L Anion Gap (2-11) mmol/L BUN (6-24) mg/dL Creatinine (0.67-1.17) mg/dL Est GFR ( Amer) (>60) Est GFR (Non-Af Amer) (>60) BUN/Creatinine Ratio (8-20) Glucose (70-100) mg/dL POC Glucose (mg/dL) 216 H (70-100) mg/dL Lactic Acid 2.5 H* (0.5-2.0) mmol/L Calcium (8.6-10.3) mg/dL Magnesium (1.9-2.7) mg/dL Total Bilirubin (0.2-1.0) mg/dL AST (13-39) U/L ALT (7-52) U/L Alkaline Phosphatase (34-104) U/L Troponin I (<0.04) ng/mL Total Protein (6.4-8.9) g/dL Albumin (3.2-5.2) g/dL Globulin (2-4) g/dL Albumin/Globulin Ratio (1-3) TSH (0.34-5.60) mcIU/mL Free T4 (0.61-1.12) ng/dL Thyroxine (T4) (6.09-12.23) mcg/mL Free T3 (2.5-3.9) pg/mL Total T3 (0.87-1.78) ng/mL Urine Color Straw Urine Appearance Clear Urine pH 8.0 (5-9) Ur Specific [place] 1.013 (1.010-1.030) Urine Protein Negative (Negative) Urine Ketones Trace H (Negative) Urine Blood 1+ H (Negative) Urine Nitrate Negative (Negative) Urine Bilirubin Negative (Negative) Urine Urobilinogen Negative (Negative) Ur Leukocyte Esterase Negative (Negative) Urine WBC (Auto) Trace(0-5/hpf) (Absent) Urine RBC (Auto) 2+(6-10/hpf) H (Absent) Urine Bacteria Absent (Absent) Urine Glucose 1+(50 mg/dl) H (Negative) Microbiology and Other Data: Microbiology 01/23/18 18:32 Influenza Types A,B Antigen (BRIEN) - Final Nasal Specimen received for Influenza A/B Molecular testing Assess/Plan/Problems-Billing Assessment: - Patient Problems (1) Syncope Current Visit: Yes Status: Acute Code(s): R55 - SYNCOPE AND COLLAPSE SNOMED Code(s): 626962997 Comment: Echo unrmarkable. Not like his prior hypoglycemic episodes. Suspect arrhythmia. Fup his [facility] P[facility]. Consider loop recorder. He denies feeling he was working strenuously or was too hot. No chest pain, SOB. Stress test (non-nuclear) 01/24. (2) Diabetes Current Visit: Yes Status: Acute Code(s): E11.9 - TYPE 2 DIABETES MELLITUS WITHOUT COMPLICATIONS SNOMED Code(s): 43732593 Comment: Resume glipizide 01/24 PM. Lispro by SS, FS achs. (3) Facial droop Current Visit: Yes Status: Acute Code(s): R29.810 - FACIAL WEAKNESS SNOMED Code(s): 05991263 Comment: Reported by , resolved. MRI brain pending 01/24. (4) Prostatism Current Visit: Yes Status: Acute Code(s): N40.0 - BENIGN PROSTATIC HYPERPLASIA WITHOUT LOWER URINRY TRACT SYMP SNOMED Code(s): 92456432 Comment: Continue tamsulosin.
[2018-01-24] MEDS: glipiZIDE TAB* 5 MG PO SCH (15:49)
--- NOTE | 2018-01-24 17:51 | RAD ---
INDICATION: Fall. Memory loss COMPARISON: CT brain January 23, [address] January 23, 2018 TECHNIQUE: sagittal T1 FLAIR, axial diffusion, axial T1 FLAIR, axial T2, axial T2 FLAIR, and SWI images were acquired. This is a limited examination due to kyphosis resulting in the inability to use a normal head coil. FINDINGS: Craniocervical junction: The craniocervical junction appears normal. Ventricles/sulci: There is cortical atrophy with compensatory dilatation of the CSF spaces. Brain parenchyma: There is a subacute, approximately 2 cm focus of hemorrhage in the left middle cranial fossa. There is T2-weighted brightening in the adjacent parenchyma. This is likely either hemorrhagic contusion or an evolving hemorrhagic infarct. There is no significant mass effect. There are scant T2-weighted hyperintensities in the periventricular and subcortical white matter consistent with chronic microvascular ischemia. Intracranial hemorrhage: As above small focus of hemorrhage in the left middle cranial fossa. Extra-axial spaces: There are no extra-axial fluid collections or masses. Orbits: There are no MR abnormalities of the orbital structures. Paranasal sinuses/mastoid: There is pansinusitis with near fluid level in the right maxillary antrum. Sinuses are better evaluated on the recent maxillofacial CT. The mastoid air cells are well aerated.. Vascular: No abnormalities are seen. Other: None IMPRESSION: SMALL HEMORRHAGIC CONTUSION LEFT TEMPORAL LOBE VERSUS SMALL HEMORRHAGIC INFARCT. Findings called to ordering clinician.
[2018-01-24] MEDS: Ondansetron INJ* 2 MG/ML VIAL IV PRN (22:09)
[2018-01-24] MEDS: hydrALAZINE IV* 20 MG/ML VIAL IV SLOW PU PRN (22:10)
[2018-01-25] MEDS: Acetaminophen TAB* 325 MG PO PRN ×3 (02:48→23:47)
[2018-01-25] MEDS: Meclizine TAB* 12.5 MG PO SCH ×3 (05:19→20:07)
[2018-01-25] MEDS: Ferrous Sulfate TAB* 325 MG PO SCH (08:54)
[2018-01-25] MEDS: glipiZIDE TAB* 5 MG PO SCH ×2 (08:54→17:20)
[2018-01-25] MEDS: Atorvastatin* 40 MG TAB PO SCH (08:54)
[2018-01-25] MEDS: Docusate CAP* 100 MG PO PRN (08:55)
[2018-01-25] MEDS: amLODIPine TAB* 5 MG PO SCH (08:55)
[2018-01-25] MEDS: Insulin LISPRO* 1 UNITS UNIT SUBCUT SCH ×3 (08:55→16:41)
[2018-01-25] MEDS: Tamsulosin CAP* 0.4 MG PO SCH (08:55)
--- NOTE | 2018-01-25 09:43 | RAD ---
Indication: Follow-up intracranial hemorrhage CT of the brain was performed without IV contrast. Comparison is made with previous exam dated January 23, 2018. Prior MRI dated January 24, 2018 was also reviewed. Again noted is left temporal intracranial hemorrhage which may be intraparenchymal in nature. This has not increased in size since previous exam. Ventricular structures are midline. No midline shift is noted. The extra-axial spaces are grossly unremarkable. Small area of increased density is noted in the left middle cranial fossa consistent with a small intraparenchymal hemorrhage. This has not significant changed since January 23, 2018. There is likely a small left-sided subtentorial subdural hematoma noted. This is also unchanged from previous exam. IMPRESSION: Small left temporal lobe intraparenchymal hematoma. There is suggestion of a small supratentorial left-sided subdural hematoma which is unchanged from previous exam.
[2018-01-25] MEDS ORDERED: Omeprazole CAP* 20 MG PO ONE (11:42)
[2018-01-25] MEDS ORDERED: Calcium Carbonate CHEW TAB* 500 MG (TUMS) PO PRN (11:42)
--- NOTE | 2018-01-25 15:16 | PN ---
Subjective Date of Service: 01/25/18 Interval History: Patient reports his symptoms are the same as admission. He continues to have dizziness and nausea when sitting straight up or standing. He denies GALLEGOS, vision changes or weakness. He does have facial droop noted which was identified on admission. Denies any speech difficulties. He does not remember falling, reporting he was shoveling snow one minute then in the ambulance the next. He denies ever having CP/SOB/Palpitations. Objective Active Medications: Acetaminophen (Tylenol Tab*) 650 mg PO Q4H PRN PRN Reason: FEVER/PAIN Last Admin: 01/25/18 08:54 Dose: 650 mg Amlodipine Besylate (Norvasc Tab*) 10 mg PO DAILY [facility] Last Admin: 01/25/18 08:55 Dose: 10 mg Atorvastatin Calcium (Lipitor*) 40 mg PO DAILY [facility] Last Admin: 01/25/18 08:54 Dose: 40 mg Calcium Carbonate (Tums*) 500 mg PO Q4H PRN PRN Reason: reflux Last Admin: 01/25/18 11:59 Dose: 500 mg Dextrose (D50w Syringe 50 Ml*) 12.5 gm IV PUSH .FOR FS < 60 - SS PRN PRN Reason: FS < 60 Docusate Sodium (Colace Cap*) 100 mg PO DAILY PRN PRN Reason: CONSTIPATION Last Admin: 01/25/18 08:55 Dose: 100 mg Ferrous Sulfate (Ferrous Sulfate Tab*) 325 mg PO DAILY [facility] Last Admin: 01/25/18 08:54 Dose: 325 mg Glipizide (Glucotrol Tab*) 5 mg PO BID WITH MEALS [facility] Last Admin: 01/25/18 08:54 Dose: 5 mg Hydralazine HCl (Apresoline Iv*) 10 mg IV SLOW PU Q4H PRN PRN Reason: BLOOD PRESSURE Last Admin: 01/24/18 22:10 Dose: 10 mg Insulin Human Lispro (Humalog*) 0 units SUBCUT AC [facility] PRN Reason: Protocol Last Admin: 01/25/18 11:59 Dose: 2 units Lorazepam (Ativan Tab(*)) 1 mg PO Q4H PRN PRN Reason: ANXIETY Last Admin: 01/24/18 16:38 Dose: 1 mg Meclizine HCl (Antivert Tab*) 12.5 mg PO Q8HR [facility] Last Admin: 01/25/18 14:00 Dose: 12.5 mg Ondansetron HCl (Zofran Inj*) 4 mg IV Q6H PRN PRN Reason: NAUSEA Last Admin: 01/24/18 22:09 Dose: 4 mg Prochlorperazine Edisylate (Compazine Inj*) 5 mg IV Q6H PRN PRN Reason: NAUSEA/VOMITING Tamsulosin HCl (Flomax Cap*) 0.4 mg PO DAILY [facility] Last Admin: 01/25/18 08:55 Dose: 0.4 mg Vital Signs - 8 hr 01/25/18 01/25/18 01/25/18 07:20 07:41 10:57 Temperature 98.3 F 98.2 F Pulse Rate 75 79 Respiratory 18 16 16 Rate Blood Pressure 129/58 136/56 (mmHg) O2 Sat by Pulse 95 97 Oximetry Oxygen Devices in Use Now: None Appearance: well developed 67 yo male sitting up in bed in NAD. A+O x3 Eyes: No Scleral Icterus, PERRLA, - - right eye has edema and ecchymosis Ears/Nose/Mouth/Throat: Clear Oropharnyx, Mucous Membranes Moist, - - no teeth Neck: NL Appearance and Movements; NL JVP Respiratory: Symmetrical Chest Expansion and Respiratory Effort, Clear to Auscultation Cardiovascular: NL Sounds; No Murmurs; No JVD, RRR, No Edema Abdominal: NL Sounds; No Tenderness; No Distention Extremities: No Edema, No Clubbing, Cyanosis, - - left thumb in splint; mildly edematous, ecchymosis, warm Skin: No Rash or Ulcers, No Nodules or Sclerosis Neurological: Alert and Oriented x 3, NL Sensation, NL Gait, NL Muscle Strength and Tone, - - facial droop noted Lines/Tubes/Other Access: Clean, Dry and Intact Peripheral IV Nutrition: Taking PO's Result Diagrams: 01/24/18 06:29 01/24/18 09:11 Additional Lab and Data: Lab Results 01/23/18 01/23/18 01/23/18 Range/Units 13:16 13:16 13:16 WBC 10.2 (3.5-10.8) 10^3/ul RBC 4.54 (4.0-5.4) 10^6/ul Hgb 13.7 L (14.0-18.0) g/dl Hct 41 L (42-52) % MCV 90 (80-94) fL MCH 30 (27-31) pg MCHC 34 (31-36) g/dl RDW 13 (10.5-15) % Plt Count 247 (150-450) 10^3/ul MPV 8 (7.4-10.4) um3 Neut % (Auto) 82.8 (38-83) % Lymph % (Auto) 9.0 L (25-47) % [place] % (Auto) 5.9 (0-7) % Eos % (Auto) 1.0 (0-6) % Baso % (Auto) 1.3 (0-2) % Absolute Neuts (auto) 8.4 H (1.5-7.7) 10^3/ul Absolute Lymphs (auto) 0.9 L (1.0-4.8) 10^3/ul Absolute Monos (auto) 0.6 (0-0.8) 10^3/ul Absolute Eos (auto) 0.1 (0-0.6) 10^3/ul Absolute Basos (auto) 0.1 (0-0.2) 10^3/ul Absolute Nucleated RBC 0 10^3/ul Nucleated RBC % 0 INR (Anticoag Therapy) 0.87 (0.77-1.02) Sodium 132 L (133-145) mmol/L Potassium 4.3 (3.5-5.0) mmol/L Chloride 100 L (101-111) mmol/L Carbon Dioxide 21 L (22-32) mmol/L Anion Gap 11 (2-11) mmol/L BUN 27 H (6-24) mg/dL Creatinine 1.21 H (0.67-1.17) mg/dL Est GFR ( Amer) 76.7 (>60) Est GFR (Non-Af Amer) 59.6 (>60) BUN/Creatinine Ratio 22.3 H (8-20) Glucose 187 H (70-100) mg/dL POC Glucose (mg/dL) (70-100) mg/dL Lactic Acid (0.5-2.0) mmol/L Calcium 9.6 (8.6-10.3) mg/dL Magnesium 1.9 (1.9-2.7) mg/dL Total Bilirubin 0.50 (0.2-1.0) mg/dL AST 27 (13-39) U/L ALT 21 (7-52) U/L Alkaline Phosphatase 117 H (34-104) U/L Troponin I 0.01 (<0.04) ng/mL Total Protein 7.8 (6.4-8.9) g/dL Albumin 4.4 (3.2-5.2) g/dL Globulin 3.4 (2-4) g/dL Albumin/Globulin Ratio 1.3 (1-3) TSH 6.12 H (0.34-5.60) mcIU/mL Free T4 0.68 (0.61-1.12) ng/dL Thyroxine (T4) 6.69 (6.09-12.23) mcg/mL Free T3 3.50 (2.5-3.9) pg/mL Total T3 1.19 (0.87-1.78) ng/mL Urine Color Urine Appearance Urine pH (5-9) Ur Specific [place]ham (1.010-1.030) Urine Protein (Negative) Urine Ketones (Negative) Urine Blood (Negative) Urine Nitrate (Negative) Urine Bilirubin (Negative) Urine Urobilinogen (Negative) Ur Leukocyte Esterase (Negative) Urine WBC (Auto) (Absent) Urine RBC (Auto) (Absent) Urine Bacteria (Absent) Urine Glucose (Negative) 01/23/18 01/23/18 01/23/18 Range/Units 13:16 15:23 17:28 WBC (3.5-10.8) 10^3/ul RBC (4.0-5.4) 10^6/ul Hgb (14.0-18.0) g/dl Hct (42-52) % MCV (80-94) fL MCH (27-31) pg MCHC (31-36) g/dl RDW (10.5-15) % Plt Count (150-450) 10^3/ul MPV (7.4-10.4) um3 Neut % (Auto) (38-83) % Lymph % (Auto) (25-47) % [place] % (Auto) (0-7) % Eos % (Auto) (0-6) % Baso % (Auto) (0-2) % Absolute Neuts (auto) (1.5-7.7) 10^3/ul Absolute Lymphs (auto) (1.0-4.8) 10^3/ul Absolute Monos (auto) (0-0.8) 10^3/ul Absolute Eos (auto) (0-0.6) 10^3/ul Absolute Basos (auto) (0-0.2) 10^3/ul Absolute Nucleated RBC 10^3/ul Nucleated RBC % INR (Anticoag Therapy) (0.77-1.02) Sodium (133-145) mmol/L Potassium (3.5-5.0) mmol/L Chloride (101-111) mmol/L Carbon Dioxide (22-32) mmol/L Anion Gap (2-11) mmol/L BUN (6-24) mg/dL Creatinine (0.67-1.17) mg/dL Est GFR ( Amer) (>60) Est GFR (Non-Af Amer) (>60) BUN/Creatinine Ratio (8-20) Glucose (70-100) mg/dL POC Glucose (mg/dL) 216 H (70-100) mg/dL Lactic Acid 2.5 H* (0.5-2.0) mmol/L Calcium (8.6-10.3) mg/dL Magnesium (1.9-2.7) mg/dL Total Bilirubin (0.2-1.0) mg/dL AST (13-39) U/L ALT (7-52) U/L Alkaline Phosphatase (34-104) U/L Troponin I (<0.04) ng/mL Total Protein (6.4-8.9) g/dL Albumin (3.2-5.2) g/dL Globulin (2-4) g/dL Albumin/Globulin Ratio (1-3) TSH (0.34-5.60) mcIU/mL Free T4 (0.61-1.12) ng/dL Thyroxine (T4) (6.09-12.23) mcg/mL Free T3 (2.5-3.9) pg/mL Total T3 (0.87-1.78) ng/mL Urine Color Straw Urine Appearance Clear Urine pH 8.0 (5-9) Ur Specific [place] 1.013 (1.010-1.030) Urine Protein Negative (Negative) Urine Ketones Trace H (Negative) Urine Blood 1+ H (Negative) Urine Nitrate Negative (Negative) Urine Bilirubin Negative (Negative) Urine Urobilinogen Negative (Negative) Ur Leukocyte Esterase Negative (Negative) Urine WBC (Auto) Trace(0-5/hpf) (Absent) Urine RBC (Auto) 2+(6-10/hpf) H (Absent) Urine Bacteria Absent (Absent) Urine Glucose 1+(50 mg/dl) H (Negative) Microbiology and Other Data: Microbiology 01/23/18 18:32 Influenza Types A,B Antigen (BRIEN) - Final Nasal Specimen received for Influenza A/B Molecular testing Assess/Plan/Problems-Billing Assessment: 67 yo male with PMH of Dubois's esophagus, HTN, DM, HLD and depression who presented to the ED on 01/23 after he had a syncopal episode while shoveling found to have a hemorrhagic contusion of the left temporal. - Patient Problems (1) Head contusion Comment: - MRI Brain showing small hemorrhagic contusion left temporal lobe vs small hemorrhagic infacrt. Neurology Dr. Quinn following, she believeds this is a contusion secondary to fall. Unclear etiilogy of fall. She would like to see the patient in 8 weeks for follow-up and he shoudl undergo an MRI prior w/wo contrast. - Neurosurgery saw pt today, no intervention. (2) Syncope Comment: Echo unremarkable. Troponins peaked 0.04. Not like his prior hypoglycemic episodes. No arrythmias noted on tele. [facility]up [facility] - Consider loop recorder as outpt. No chest pain, SOB. Stress test (non-nuclear) 01/24. (3) Dizziness Comment: - Dizziness/nausea secondary to the contusion. Dr. Quinn reports occassionally pts require vincent maneuver. - cintinue compazine and meclazine prn (4) Fracture of thumb Comment: - left thumb fracture at the pip joint - Will discuss with Ortho - Currently in a splint - pain management (5) Diabetes Comment: Resume glipizide 01/24 PM. Lispro by SS, FS achs. (6) DVT prophylaxis Comment: contraindicated (7) Full code status Status and Disposition: inpatient with hemorrhagic contusion with dizziness/nausea.
[2018-01-25] MEDS: Ondansetron INJ* 2 MG/ML VIAL IV PRN (15:22)
[2018-01-25] MEDS ORDERED: Meclizine TAB* 12.5 MG PO ONE (17:00)
--- NOTE | 2018-01-25 19:59 | CONS ---
NEUROLOGY CONSULTATION: DATE OF CONSULT: 01/25/18 REQUESTING PROVIDER: Filemon Diaz NP REASON FOR CONSULT: Brain contusion. HISTORY OF PRESENT ILLNESS: Mateusz Cooley is a 67-year-old man with a history of hypertension, diabetes, Dubois's esophagus, and depression, who came into the emergency room on 01/23/18, after he had a fall at work. He works for a local [employer] and was shoveling snow when he fell. He is not sure why he fell, but he thinks that he went into the [employer] and the cold roll catcher called the ambulance for him. No one witnessed the fall. He does not recall feeling lightheaded, dizzy, or having any chest pain prior to his fall. He has never had an episode like this before. He did have some vomiting once he was here in the emergency department. He was also hypertensive on his initial arrival. He had a CT of his brain on his arrival, which was initially read to show no acute intracranial abnormality, but this was then followed up with an MRI scan of the brain, which showed some hemorrhage in the left middle cranial fossa, in the anterior temporal lobe, and in retrospect, there is some hemorrhage apparent on the initial CT scan, which was somewhat obscured by bone and motion artifact. I spoke with radiology about this this morning. He has had a followup CT scan this morning which shows this area of hemorrhage to be stable. Today, the patient denies any significant headache. He does get vertigo when he is changing positions and he feels unsteady on his feet. He said that he has had to urinate lying down in his bed because he was unable to stand because of his balance difficulties. He has also had less of an appetite since he has been here. He is having some word finding difficulties. He reports being in his usual state of health prior to this fall. His states that he had picked his daughter up in the morning prior to this fall and seemed normal to her. However, she does note that the night before this fall, while he was sleeping, she noticed that the left side of his face seemed to be drooping down like she had never seen it before, though he was also lying on his left side. She did not wake him up, but made note of it once he was here after the fall. Today, his family seems to indicate that his facial appearance seems to be at his baseline. Neurology was requested to weigh in on whether all the changes on the MRI scan seem to be posttraumatic and whether there is any other possible neurologic cause for his fall. PAST MEDICAL HISTORY: 1. Dubois's esophagus. 2. Hypertension. 3. Hyperlipidemia. 4. Diabetes. 5. Depression. PAST SURGICAL HISTORY: Back surgery and a cyst from his neck removed. HOME MEDICATIONS: 1. Benadryl 25 mg p.r.n. 2. Aspirin 81 mg daily. 3. Tylenol Extra Strength 500 mg q.4 hours p.r.n. 4. Glipizide 5 mg b.i.d. 5. Flomax 0.4 mg daily. 6. Flonase daily. 7. Ferrous sulfate 325 mg daily. 8. Colace 100 mg as needed. 9. Zyrtec 10 mg as needed. 10. Lipitor 40 mg daily. ALLERGIES: CODEINE. FAMILY HISTORY: Mother with underactive thyroid and hypertension. Father reportedly had lung cancer, which metastasized. SOCIAL HISTORY: He is former smoker. He does not drink and reports that he quit this more than 25 years ago. Denies any other drug use. He lives with his and kids. REVIEW OF SYSTEMS: As per the HPI. In addition, he denies any significant weight changes. There was no illness prior to this fall. PHYSICAL EXAM: Vital Signs: Temperature 98.2, blood pressure 136/56, heart rate 79, oxygen saturation 97% on room air. On general examination, he is in no acute distress. He is edentulous. He has swelling and ecchymosis surrounding his right eye. He has a thumb splint on his left. His heart is in a regular rate and rhythm. There is a systolic ejection murmur, which is best heard at the left upper sternal border. It appears that this murmur radiates through the carotids. Lungs were clear to auscultation bilaterally. Neurologic Examination: He is fully awake, alert, and oriented though it did take some effort to come up with the current year. He was able to say his date of as well as the current day of the week. He registered 3/3 objects and was able to recall 1/3 spontaneously after approximately 5-minute period of distraction. He was able to get 1 additional object with category cue. On cranial nerve exam, pupils were equal, round, and reactive from 4 to 2 mm bilaterally. His versions were full without nystagmus. Healy are full to confrontation with no extinction to double simultaneous stimulation. Facial sensation is intact in the V1 through V3 distributions bilaterally. At rest, he appears to have some mild lower facial asymmetry with down turning of the left corner of the mouth, but approximately equal activation with smile and his family seems to think he is at his baseline. Hearing is intact to voice. The palate elevates symmetrically and the tongue is midline. Shoulder shrug is full and symmetric. On motor examination, there is normal bulk and tone in the upper and lower extremities. Strength is full proximally and distally with no pronator drift. There is no tremor or abnormal movements noted. Sensory is intact to light touch and pinprick in the upper and lower extremities. Reflexes were 2 to 3+ in the upper extremities, 2+ at the left knee, 3+ at the right knee with crossed adduction and 2+ at the ankles with downgoing toes. [id number] and [id number] were intact without ataxia. I did not ambulate him at this time. DIAGNOSTIC STUDIES/LAB DATA: Notable for a white count of 14.9 yesterday, which has not been repeated today. This differential was 88.9% neutrophils, 4.1 % lymphocytes, and 13.3 absolute neutrophils. Hematocrit stable at 41 and hemoglobin 13.6. His coagulation studies on admission were normal. Chemistry panel shows mildly low sodium of 131, which is essentially stable. His creatinine was elevated to 1.21 on admission, improved yesterday to 1.13. Initial lactate was 2.5, improved to 1.8. Troponin was 0.04 on 01/23/18, but improved to 0.03 yesterday. A1c is 6.6 and cholesterol studies show total cholesterol of 209, LDL 147, HDL 44.8, and triglycerides 84. His initial TSH was 6.12, but normal free T4 and T3. His urinalysis showed trace ketones, 1+ blood, and 1+ glucose. His rapid flu was negative. His brain CTs were reviewed as above. MRI of the brain as mentioned was reviewed and showed small area of hemorrhage in the left middle cranial fossa in the left anterior temporal lobe. This also corresponds to an area of increased FLAIR signal and there is an additional area of increased FLAIR in the left posterior temporal lobe along the cortex. These are most likely consistent with contra-coup injuries with some associated hemorrhage. Transthoracic echo was also completed and shows moderate concentric LVH, hyperdynamic LV with EF greater than 65%. Left atrium is mildly dilated. There are no significant valvular abnormalities noted. A maxillofacial CT did not show any evidence for orbital fracture. EEG was performed this morning and showed no epileptiform abnormalities. IMPRESSION: Mateusz Cooley is a 67-year-old man with multiple medical problems, who came in after a fall and is found to have a small area of hemorrhage in the left anterior temporal lobe associated with FLAIR abnormality on the MRI scan. This is most likely consistent with intraparenchymal contusion secondary to head trauma. His EEG did not show any epileptiform abnormalities. As best as I can tell right now, his MRI changes are secondary to his head trauma and there does not appear to be anything underlying, which may predispose him to seizure prior to this head injury. His aspirin has been held currently because of the finding of intracranial hemorrhage, but I think that this could safely be restarted within the next couple of days. It would make sense to have a repeat MRI scan of the brain in about 8 weeks with and without contrast to make sure that there is no evidence of anything potentially underlying the area of hemorrhage and that resolution is occurring and as we would expect with traumatic brain injury. There is no evidence of infarction on the DWI images, so I do not think this is an ischemic stroke with hemorrhagic conversion. He can follow up with me as an outpatient in about 8 weeks with an MRI prior to that. Thank you for this consultation. [id number]/[facility] #: [id number] [facility]
--- NOTE | 2018-01-25 21:34 | CONSULT ---
Consult Consult: Neurosurgery Consult Date of Consult: 01/25/18 Date of Admission: 01/23/18 Reason for Consult: Cerebral contusion Referring Provider: Filemon Diaz NP HPI: This is a 67 year old male with past medical history significant for diabetes, HTN, hyperlipidemia, stahl's esophagus and depression who [place] [facility] [place] an unwitnessed [place]. The patient was shoveling snow at a [employer] when he fell. He states that he does not remember the fall or events leading up to or immediately following the fall. He apparently got up and walked into the [employer] to ask for help. He was then transported [place] [facility] He states that he was feeling well in the time leading up to shoveling. He does not recall lightheadedness, dizziness, chest pain, palpitations, headache, nausea and difficulty breathing prior to the fall or earlier in the day. He was not bowel or bladder incontinent. He has a history of diabetes and reports not routinely checking his blood sugar. He states that had eaten at least a couple slices of bread earlier in the day. Upon arrival at the ED, he was nauseous and vomiting, complained of headache and dizziness. CT of the brain was obtained which was initially read as negative for hemorrhage. Facial droop was observed later and MRI was then obtained which showed cerebral contusion. Follow up CT was obtained this morning as well showing stable contusion. Currently, the patient continues to complain of frontal headache and dizziness with standing. He has not been nauseous this morning. Denies neck pain, vision changes He also complains of mild right shoulder pain and left thumb injury from the fall. Past Medical History: 1. Diabetes Type II 2. HTN 3. Hyperlipidemia 4. Stahl's esophagus 5. Depression Home medications: 1. Acetaminophen [Acetaminophen Extra Strength] 500 mg PO Q4HR PRN 01/23/18 [ History Confirmed 01/23/18] 2. Aspirin EC Low Dose* [Ecotrin EC Low Dose 81 MG*] 81 mg PO DAILY 01/23/18 [ History Confirmed 01/23/18] 3. Atorvastatin* [Lipitor*] 40 mg PO DAILY 01/23/18 [History Confirmed 01/23/18] 4. Cetirizine* [ZyrTEC 10 MG TAB*] 10 mg PO DAILY PRN 01/23/18 [History Confirmed 01/23/18] 5. Docusate CAP* [Colace Cap*] 100 mg PO DAILY PRN 01/23/18 [History Confirmed 01/23/18] 6. Ferrous Sulfate TAB* 325 mg PO DAILY 01/23/18 [History Confirmed 01/23/18] 7. Fluticasone NASAL SPRAY 50MCG* [Flonase NASAL SPRAY 50MCG*] 2 spray BOTH NARES DAILY 01/23/18 [History Confirmed 01/23/18] 8. Tamsulosin CAP* [Flomax CAP*] 0.4 mg PO DAILY 01/23/18 [History Confirmed ] 9. diPHENhydraMINE PO* [Benadryl PO 25 MG TAB*] 25 mg PO DAILY PRN 01/23/18 [ History Confirmed 01/23/18] 10. glipiZIDE TAB* [Glucotrol TAB*] 5 mg PO BID 01/23/18 [History Confirmed ] Allergies: 1. Penicillins 2. Codeine ROS: Full ROS completed. Pertinent findings stated in HPI and all others negative. Physical Exam: Vital Signs: Temp Pulse Resp BP Pulse Ox 98.3 F 76 16 150/70 97 01/25/18 19:36 01/25/18 19:36 01/25/18 20:00 01/25/18 19:36 01/25/18 19:36 General: Alert and oriented, recumbent in bed. No acute distress. HEENT: Head is normocephalic and atraumatic. Edentulous. PERRL, EOMI but slightly slow and requires prompting, sclerae anicteric. Right periorbital ecchymosis. Moist mucus membranes. Gross hearing intact. Left ear cerumen obscuring TM. Right ear TM normal. Neck: Supple and symmetric. Neck is nontender to palpation. CV: Radial and pedal pulses 2+ and equal. No edema. Lungs: Breathing is nonlabored and lungs are clear. Abdomen: The abdomen is mildly rounded. Normoactive bowel sounds. Abdomen is soft, nontender and nondistended. Neuro: Speech is clear, no slurring or aphasia. CN II-XII intact. Oriented to person, place and date. He was able to name and recall 3/3 objects. Tongue protrudes midline. Coordination in finger to nose and heel to villlaobos intact bilaterally. No pronator drift. Strength in upper and lower extremities 5/5 bilaterally. Sensation intact throughout. Extremities: Swelling and ecchymosis of the left thumb , splint in place. Imagin. CT brain on 01/23/18 shows left temporal contusion 2. MRI brain on 01/24/18 shows left temporal contusion 3. CT brain on 01/25/18 shows stable left temporal contusion Assessment and plan: This patient presented [place] [facility] [place] an unwitnessed fall while shoveling snow. Imaging of the brain showed left temporal contusion, stable on repeat imaging this morning. The patient remains symptomatic with dizziness and headache although is neurologically intact. There is no indication for neurosurgical intervention. This was discussed with the patient. This case and plan has also been discussed with Paulina Núñez NP.
--- NOTE | 2018-01-26 02:18 | EEG ---
ELECTROENCEPHALOGRAPHY REPORT: DATE OF STUDY: 01/25/18 LOCATION: The patient is an inpatient. ORDERING PROVIDER: Filemon Diaz NP. CLINICAL PROBLEM: This is a 67-year-old man who came into the emergency department after he experienced a fall while shoveling. He states that he does not remember the fall and had no warning, but there is some mention of dizziness prior to the fall as well as his noticing some facial droop the night before his fall. He was founded to have hemorrhage in the left temporal lobe. EEG is requested to evaluate for epileptiform abnormalities. MEDICATIONS: 1. Ativan. 2. Compazine. 3. Zofran. 4. Apresoline. 5. Colace. 6. Tylenol. 7. Antivert. 8. Flomax. 9. Ferrous sulfate. 10. Lipitor. 11. Norvasc. 12. Glucotrol. 13. Humalog. REPORT: The majority of the recording was captured in the drowsy state. When the waking background was observed, there was appropriate organization with clearly defined anterior to posterior voltage and frequency gradients. There was a well- defined posterior dominant rhythm of 9 Hz, which was symmetrical and showed normal reactivity. Anteriorly, there was an expected pattern of lower voltage, irregular, mixed faster frequencies. Hyperventilation and photic stimulation were not performed. Attenuation of the occipital rhythm accompanied drowsiness. There was excess beta activity intermixed within the background, consistent with medication effect. There were no well-developed sleep spindles or vertex waves to indicate a sustained transition to stage 2 sleep. Throughout the recording, there were no epileptiform discharges, focal features , paroxysmal features or significant interhemispheric asymmetries. CLINICAL IMPRESSION: This is a normal waking and drowsy EEG. There is excess beta activity, consistent with recent benzodiazepine administration. There are no epileptiform abnormalities. [id number]/[facility] #: [id number] [facility]
[2018-01-26] MEDS: Meclizine TAB* 12.5 MG PO SCH ×3 (05:13→21:05)
[2018-01-26 05:46] LABS: ABS Basophils 0.1 10^3/ul (0-0.2); ABS Eosinophils 0 10^3/ul (0-0.6); ABS Lymphocytes 1.1 10^3/ul (1.0-4.8); ABS Monocytes 0.9 10^3/ul (0-0.8); ABS Nucleated RBC 0 10^3/ul; Eosinophil % 0.5 % (0-6); Hematocrit 36 % (42-52); Hemoglobin 12.3 g/dl (14.0-18.0); Lymphocyte % 14.1 % (25-47); Mean Corpuscular HGB Conc 34 g/dl (31-36); Mean Corpuscular Hemoglobin 31 pg (27-31); Mean Corpuscular Volume 91 fL (80-94); Mean Platelet Volume 8 um3 (7.4-10.4); Nucleated Red Blood Cells % 0; Platelet Count 261 10^3/ul (150-450); Red Blood Count 3.97 10^6/ul (4.0-5.4); Red Cell Distribution Width 14 % (10.5-15); White Blood Count 8.1 10^3/ul (3.5-10.8)
[2018-01-26 05:59] LABS: EGFR Non-African American 73.5 (>60)
[2018-01-26] MEDS: glipiZIDE TAB* 5 MG PO SCH ×2 (08:59→17:16)
[2018-01-26] MEDS: amLODIPine TAB* 5 MG PO SCH (08:59)
[2018-01-26] MEDS: Ferrous Sulfate TAB* 325 MG PO SCH (08:59)
[2018-01-26] MEDS: Tamsulosin CAP* 0.4 MG PO SCH (08:59)
[2018-01-26] MEDS: Insulin LISPRO* 1 UNITS UNIT SUBCUT SCH ×3 (08:59→17:16)
[2018-01-26] MEDS: Atorvastatin* 40 MG TAB PO SCH (08:59)
[2018-01-26] MEDS: Saline NASAL SPRAY 0.65%* BTL BOTH NARES PRN (09:07)
[2018-01-26] MEDS ORDERED: Analgesic BALM* 114 GM TOPICAL PRN (10:45)
--- NOTE | 2018-01-26 10:52 | PN ---
Subjective Date of Service: 01/26/18 Interval History: Pt reports he feels much better today with less dizziness and nausea - he was able to get up to the commode which he wasnt able to do yesterday. He denies GALLEGOS. No vision changes, speech changes or weakness. He reports he continues to not feel well and does not feel that he could go home today. He was able to focus on a hand held game today for a short time but then felt like it was "too much information overload". Objective Active Medications: Acetaminophen (Tylenol Tab*) 650 mg PO Q4H PRN PRN Reason: FEVER/PAIN Last Admin: 01/25/18 23:47 Dose: 650 mg Amlodipine Besylate (Norvasc Tab*) 10 mg PO DAILY [facility] Last Admin: 01/26/18 08:59 Dose: 10 mg Atorvastatin Calcium (Lipitor*) 40 mg PO DAILY [facility] Last Admin: 01/26/18 08:59 Dose: 40 mg Calcium Carbonate (Tums*) 500 mg PO Q4H PRN PRN Reason: reflux Last Admin: 01/25/18 11:59 Dose: 500 mg Dextrose (D50w Syringe 50 Ml*) 12.5 gm IV PUSH .FOR FS < 60 - SS PRN PRN Reason: FS < 60 Docusate Sodium (Colace Cap*) 100 mg PO DAILY PRN PRN Reason: CONSTIPATION Last Admin: 01/25/18 08:55 Dose: 100 mg Ferrous Sulfate (Ferrous Sulfate Tab*) 325 mg PO DAILY [facility] Last Admin: 01/26/18 08:59 Dose: 325 mg Glipizide (Glucotrol Tab*) 5 mg PO BID WITH MEALS [facility] Last Admin: 01/26/18 08:59 Dose: 5 mg Hydralazine HCl (Apresoline Iv*) 10 mg IV SLOW PU Q4H PRN PRN Reason: BLOOD PRESSURE Last Admin: 01/24/18 22:10 Dose: 10 mg Insulin Human Lispro (Humalog*) 0 units SUBCUT AC [facility] PRN Reason: Protocol Last Admin: 01/26/18 08:59 Dose: 1 units Lorazepam (Ativan Tab(*)) 1 mg PO Q4H PRN PRN Reason: ANXIETY Last Admin: 01/24/18 16:38 Dose: 1 mg Meclizine HCl (Antivert Tab*) 25 mg PO Q8HR [facility] Last Admin: 01/26/18 05:13 Dose: 25 mg Ondansetron HCl (Zofran Inj*) 4 mg IV Q6H PRN PRN Reason: NAUSEA Last Admin: 01/25/18 15:22 Dose: 4 mg Prochlorperazine Edisylate (Compazine Inj*) 5 mg IV Q6H PRN PRN Reason: NAUSEA/VOMITING Last Admin: 01/25/18 15:44 Dose: 5 mg Sodium Chloride (Sodium Chloride 0.65% Nasal [place]*) 1 spray BOTH NARES Q4H PRN PRN Reason: CONGESTION Last Admin: 01/26/18 09:07 Dose: 1 spray Tamsulosin HCl (Flomax Cap*) 0.4 mg PO DAILY [facility] Last Admin: 01/26/18 08:59 Dose: 0.4 mg Vital Signs - 8 hr 01/26/18 01/26/18 01/26/18 03:32 07:52 08:00 Temperature 98.4 F 97.9 F Pulse Rate 66 76 Respiratory 20 16 16 Rate Blood Pressure 125/51 163/66 (mmHg) O2 Sat by Pulse 96 Oximetry 01/26/18 01/26/18 08:24 08:50 Temperature Pulse Rate Respiratory Rate Blood Pressure 149/66 (mmHg) O2 Sat by Pulse 96 Oximetry Oxygen Devices in Use Now: None Appearance: well developed 67 yo male laying in bed resting A+O x3 in NAD Eyes: No Scleral Icterus, PERRLA, - - right eye edema amd ecchymosis - appears less swollen today Ears/Nose/Mouth/Throat: NL Teeth, Lips, Gums, Mucous Membranes Moist Neck: NL Appearance and Movements; NL JVP Respiratory: Symmetrical Chest Expansion and Respiratory Effort, Clear to Auscultation Cardiovascular: NL Sounds; No Murmurs; No JVD, RRR, No Edema Abdominal: NL Sounds; No Tenderness; No Distention Extremities: No Edema, No Clubbing, Cyanosis Skin: No Rash or Ulcers, No Nodules or Sclerosis Neurological: Alert and Oriented x 3, NL Sensation, NL Muscle Strength and Tone , - - faial droop noted, appears less significant compared to yesterday. Clear speech. no focal deficits noted Lines/Tubes/Other Access: Clean, Dry and Intact Peripheral IV Nutrition: Taking PO's Result Diagrams: 01/26/18 05:19 01/26/18 05:19 Additional Lab and Data: Lab Results 01/23/18 01/23/18 01/23/18 Range/Units 13:16 13:16 13:16 WBC 10.2 (3.5-10.8) 10^3/ul RBC 4.54 (4.0-5.4) 10^6/ul Hgb 13.7 L (14.0-18.0) g/dl Hct 41 L (42-52) % MCV 90 (80-94) fL MCH 30 (27-31) pg MCHC 34 (31-36) g/dl RDW 13 (10.5-15) % Plt Count 247 (150-450) 10^3/ul MPV 8 (7.4-10.4) um3 Neut % (Auto) 82.8 (38-83) % Lymph % (Auto) 9.0 L (25-47) % Teller % (Auto) 5.9 (0-7) % Eos % (Auto) 1.0 (0-6) % Baso % (Auto) 1.3 (0-2) % Absolute Neuts (auto) 8.4 H (1.5-7.7) 10^3/ul Absolute Lymphs (auto) 0.9 L (1.0-4.8) 10^3/ul Absolute Monos (auto) 0.6 (0-0.8) 10^3/ul Absolute Eos (auto) 0.1 (0-0.6) 10^3/ul Absolute Basos (auto) 0.1 (0-0.2) 10^3/ul Absolute Nucleated RBC 0 10^3/ul Nucleated RBC % 0 INR (Anticoag Therapy) 0.87 (0.77-1.02) Sodium 132 L (133-145) mmol/L Potassium 4.3 (3.5-5.0) mmol/L Chloride 100 L (101-111) mmol/L Carbon Dioxide 21 L (22-32) mmol/L Anion Gap 11 (2-11) mmol/L BUN 27 H (6-24) mg/dL Creatinine 1.21 H (0.67-1.17) mg/dL Est GFR ( Amer) 76.7 (>60) Est GFR (Non-Af Amer) 59.6 (>60) BUN/Creatinine Ratio 22.3 H (8-20) Glucose 187 H (70-100) mg/dL POC Glucose (mg/dL) (70-100) mg/dL Lactic Acid (0.5-2.0) mmol/L Calcium 9.6 (8.6-10.3) mg/dL Magnesium 1.9 (1.9-2.7) mg/dL Total Bilirubin 0.50 (0.2-1.0) mg/dL AST 27 (13-39) U/L ALT 21 (7-52) U/L Alkaline Phosphatase 117 H (34-104) U/L Troponin I 0.01 (<0.04) ng/mL Total Protein 7.8 (6.4-8.9) g/dL Albumin 4.4 (3.2-5.2) g/dL Globulin 3.4 (2-4) g/dL Albumin/Globulin Ratio 1.3 (1-3) TSH 6.12 H (0.34-5.60) mcIU/mL Free T4 0.68 (0.61-1.12) ng/dL Thyroxine (T4) 6.69 (6.09-12.23) mcg/mL Free T3 3.50 (2.5-3.9) pg/mL Total T3 1.19 (0.87-1.78) ng/mL Urine Color Urine Appearance Urine pH (5-9) Ur Specific [place] (1.010-1.030) Urine Protein (Negative) Urine Ketones (Negative) Urine Blood (Negative) Urine Nitrate (Negative) Urine Bilirubin (Negative) Urine Urobilinogen (Negative) Ur Leukocyte Esterase (Negative) Urine WBC (Auto) (Absent) Urine RBC (Auto) (Absent) Urine Bacteria (Absent) Urine Glucose (Negative) 01/23/18 01/23/18 01/23/18 Range/Units 13:16 15:23 17:28 WBC (3.5-10.8) 10^3/ul RBC (4.0-5.4) 10^6/ul Hgb (14.0-18.0) g/dl Hct (42-52) % MCV (80-94) fL MCH (27-31) pg MCHC (31-36) g/dl RDW (10.5-15) % Plt Count (150-450) 10^3/ul MPV (7.4-10.4) um3 Neut % (Auto) (38-83) % Lymph % (Auto) (25-47) % Teller % (Auto) (0-7) % Eos % (Auto) (0-6) % Baso % (Auto) (0-2) % Absolute Neuts (auto) (1.5-7.7) 10^3/ul Absolute Lymphs (auto) (1.0-4.8) 10^3/ul Absolute Monos (auto) (0-0.8) 10^3/ul Absolute Eos (auto) (0-0.6) 10^3/ul Absolute Basos (auto) (0-0.2) 10^3/ul Absolute Nucleated RBC 10^3/ul Nucleated RBC % INR (Anticoag Therapy) (0.77-1.02) Sodium (133-145) mmol/L Potassium (3.5-5.0) mmol/L Chloride (101-111) mmol/L Carbon Dioxide (22-32) mmol/L Anion Gap (2-11) mmol/L BUN (6-24) mg/dL Creatinine (0.67-1.17) mg/dL Est GFR ( Amer) (>60) Est GFR (Non-Af Amer) (>60) BUN/Creatinine Ratio (8-20) Glucose (70-100) mg/dL POC Glucose (mg/dL) 216 H (70-100) mg/dL Lactic Acid 2.5 H* (0.5-2.0) mmol/L Calcium (8.6-10.3) mg/dL Magnesium (1.9-2.7) mg/dL Total Bilirubin (0.2-1.0) mg/dL AST (13-39) U/L ALT (7-52) U/L Alkaline Phosphatase (34-104) U/L Troponin I (<0.04) ng/mL Total Protein (6.4-8.9) g/dL Albumin (3.2-5.2) g/dL Globulin (2-4) g/dL Albumin/Globulin Ratio (1-3) TSH (0.34-5.60) mcIU/mL Free T4 (0.61-1.12) ng/dL Thyroxine (T4) (6.09-12.23) mcg/mL Free T3 (2.5-3.9) pg/mL Total T3 (0.87-1.78) ng/mL Urine Color Straw Urine Appearance Clear Urine pH 8.0 (5-9) Ur Specific [place] 1.013 (1.010-1.030) Urine Protein Negative (Negative) Urine Ketones Trace H (Negative) Urine Blood 1+ H (Negative) Urine Nitrate Negative (Negative) Urine Bilirubin Negative (Negative) Urine Urobilinogen Negative (Negative) Ur Leukocyte Esterase Negative (Negative) Urine WBC (Auto) Trace(0-5/hpf) (Absent) Urine RBC (Auto) 2+(6-10/hpf) H (Absent) Urine Bacteria Absent (Absent) Urine Glucose 1+(50 mg/dl) H (Negative) Microbiology and Other Data: Microbiology 01/23/18 18:32 Influenza Types A,B Antigen (BRIEN) - Final Nasal Specimen received for Influenza A/B Molecular testing Assess/Plan/Problems-Billing Assessment: 67 yo male with PMH of Dubois's esophagus, HTN, DM, HLD and depression who presented to the ED on 01/23 after he had a syncopal episode while shoveling found to have a hemorrhagic contusion of the left temporal. - Patient Problems (1) Head contusion Comment: - MRI Brain showing small hemorrhagic contusion left temporal lobe vs small hemorrhagic infarct. Neurology Dr. Quinn following, she believes this is a cerebral contusion secondary to fall/syncope. Unclear etilogy of fall/syncope. She would like to see the patient in 8 weeks for follow-up and he should undergo an MRI prior to her visit w/wo contrast. - Neurosurgery following, no surgical intervention intervention. - Discussed with pt TBI and need to allow for healing, no driving or work for a week or so, until he feels better. (2) Syncope Comment: Echo unremarkable. Troponins peaked 0.04. Not like his prior hypoglycemic episodes. No arrythmias noted on tele. [facility] - Consider loop recorder as outpt. No chest pain, SOB. Stress test (non-nuclear) 01/27. NPO p midnight (3) Dizziness Comment: - Dizziness/nausea secondary to the contusion, much improvement today - Dr. Quinn reports occassionally pts require vincent maneuver after contusion if this doesnt resolve. - continue compazine and meclazine prn (4) Fracture of thumb Comment: - left thumb fracture at the pip joint, he is to follow up with Ortho this week , may require surgery per Dr. Pederson and if so would like to schedule him for Saturday. I discussed with Dr. Pederson over the phone but he was not seen by Ortho in hospital - please call Ortho office Saturday to schedule appointment for this week prior to saturday. - Currently in a splint - pain management (5) Diabetes Comment: Resume glipizide 01/24 PM. Lispro by SS, FS achs. (6) DVT prophylaxis Comment: contraindicated (7) Full code status Status and Disposition: inpatient with hemorrhagic contusion secondary to syncope/fall?? Plan for stress test tomorrow. Pt improving most likely, possible DC to home tomorrow pending stress test. Follow up with Ortho this week for possible surgery saturday - appointment needs to be made.
[2018-01-26] MEDS: Docusate CAP* 100 MG PO PRN (13:40)
[2018-01-26] MEDS: Acetaminophen TAB* 325 MG PO PRN ×2 (16:15→21:05)
[2018-01-27] MEDS: Meclizine TAB* 12.5 MG PO SCH ×2 (05:15→14:35)
[2018-01-27] MEDS: Insulin LISPRO* 1 UNITS UNIT SUBCUT SCH ×3 (08:44→17:15)
[2018-01-27] MEDS: hydrALAZINE IV* 20 MG/ML VIAL IV SLOW PU PRN (08:53)
[2018-01-27] MEDS: amLODIPine TAB* 5 MG PO SCH (08:54)
[2018-01-27] MEDS: Atorvastatin* 40 MG TAB PO SCH (08:54)
[2018-01-27] MEDS: Ferrous Sulfate TAB* 325 MG PO SCH (08:54)
[2018-01-27] MEDS: Tamsulosin CAP* 0.4 MG PO SCH (08:54)
[2018-01-27] MEDS ORDERED: DOBUTamine 2000 MCG/ML IVPREMX 500 MG/250 ML BAG IV ONE (10:13)
[2018-01-27] MEDS ORDERED: Atropine SYRINGE* 0.1 MG/ML 10 ML SYRINGE (1 MG) ONE (11:18)
[2018-01-27] MEDS ORDERED: Metoprolol Tartrate IV* 1 MG/ML 5 ML VIAL ONE (11:19)
--- NOTE | 2018-01-27 12:59 | PN ---
Subjective Date of Service: 01/27/18 Interval History: Mr. Cooley denies complaint and is eager for discharge to home. He denies dizziness or lightheadedness. He further denies chest pain, SOB, nausea, or abdominal pain. Objective Active Medications: Acetaminophen (Tylenol Tab*) 650 mg PO Q4H PRN Amlodipine Besylate (Norvasc Tab*) 10 mg PO DAILY [facility] Atorvastatin Calcium (Lipitor*) 40 mg PO DAILY [facility] Calcium Carbonate (Tums*) 500 mg PO Q4H PRN Dextrose (D50w Syringe 50 Ml*) 12.5 gm IV PUSH .FOR FS < 60 - SS PRN Docusate Sodium (Colace Cap*) 100 mg PO DAILY PR[facility] Ferrous Sulfate (Ferrous Sulfate Tab*) 325 mg PO DAILY [facility] Glipizide (Glucotrol Tab*) 5 mg PO BID WITH MEALS [facility] Hydralazine HCl (Apresoline Iv*) 10 mg IV SLOW PU Q4H PRN Insulin Human Lispro (Humalog*) 0 units SUBCUT AC [facility] Meclizine HCl (Antivert Tab*) 25 mg PO Q8HR [facility] Multi-Ingredient Liniment/Rub ([place]*) 1 applic TOPICAL TID PRN Ondansetron HCl (Zofran Inj*) 4 mg IV Q6H PRN Prochlorperazine Edisylate (Compazine Inj*) 5 mg IV Q6H PRN Sodium Chloride (Sodium Chloride 0.65% Nasal [place]*) 1 spray BOTH NARES Q4H PRN Tamsulosin HCl (Flomax Cap*) 0.4 mg PO DAILY [facility] Vital Signs: Temp Pulse Resp BP Pulse Ox 97.7 F 70 15 162/65 98 01/27/18 07:56 01/27/18 07:56 01/27/18 07:56 01/27/18 07:56 01/27/18 07:56 Oxygen Devices in Use Now: None Appearance: Male sitting up in bed in NAD Eyes: No Scleral Icterus Ears/Nose/Mouth/Throat: Mucous Membranes Moist Neck: Trachea Midline Respiratory: Symmetrical Chest Expansion and Respiratory Effort, Clear to Auscultation Cardiovascular: NL Sounds; No Murmurs; No JVD, No Edema Abdominal: NL Sounds; No Tenderness; No Distention Lymphatic: No Cervical Adenopathy Extremities: No Edema Skin: No Rash or Ulcers Neurological: Alert and Oriented x 3, NL Muscle Strength and Tone Nutrition: Taking PO's Result Diagrams: 01/26/18 05:19 01/26/18 05:19 Additional Lab and Data: . Microbiology and Other Data: . Assess/Plan/Problems-Billing Assessment: Mr. Cooley is a 67 yo male with PMH of Dubois's esophagus, HTN, DM, HLD and depression who presented to the ED on 01/23 after he had a syncopal episode while shoveling found to have a small temporal lobe intraparenchymal hematoma. - Patient Problems (1) Head contusion Comment: - MRI Brain showing small hemorrhagic contusion left temporal lobe vs small hemorrhagic infarct. Neurology Dr. Quinn following, she believes this is a cerebral contusion secondary to fall/syncope. Unclear etilogy of fall/syncope. She would like to see the patient in 8 weeks for follow-up and he should undergo an MRI prior to her visit w/wo contrast. - Neurosurgery following, no surgical intervention intervention. - Discussed with pt TBI and need to allow for healing, no driving or work for a week or so, until he feels better. (2) Syncope Comment: - Echo unremarkable. Troponins peaked 0.04. Not like his prior hypoglycemic episodes. No arrythmias noted on tele. [facility]up his [facility] P[facility] - Consider loop recorder as outpt. - No chest pain, SOB. - Stress echo read as normal. - Patient believes he must have slipped in the snow. (3) Hypertension Comment: - SBP 130s. - Continue amlodipine. (4) Dizziness Comment: - Resolved - Dr. Quinn reports occassionally pts require vincent maneuver after contusion if this doesn't resolve. - Continue compazine and meclazine prn (5) Fracture of thumb Comment: - Left thumb fracture at the pip joint, he is to follow up with Ortho this week , may require surgery per Dr. Pederson and if so would like to schedule him for Saturday. I discussed with Dr. Pederson over the phone but he was not seen by Ortho in hospital - please call Ortho office Saturday to schedule appointment for this week prior to saturday. - Currently in a splint - pain management (6) Prostatism Comment: - Continue tamsulosin. (7) Diabetes Comment: - Resume glipizide 01/24 PM. - Lispro by SS, JORDY AC. (8) DVT prophylaxis Comment: - Contraindicated. (9) Full code status Comment: Status and Disposition: Inpatient. Discharge to home.
[2018-01-27] MEDS: glipiZIDE TAB* 5 MG PO SCH ×2 (14:25→17:15)
[2018-01-27] MEDS: Saline NASAL SPRAY 0.65%* BTL BOTH NARES PRN (15:20)
[2018-01-27] MEDS: Acetaminophen TAB* 325 MG PO PRN (15:21)
[2018-01-27 16:58] VITALS: BP 129/52
--- NOTE | 2018-01-29 22:48 | DS ---
CC: Shelli Addison NP [facility] MEDICINE DISCHARGE SUMMARY: DATE OF ADMISSION: 01/23/18 DATE OF DISCHARGE: 01/27/18 PRIMARY CARE PHYSICIAN: Shelli Addison NP. ATTENDING PHYSICIAN: Andre Choi MD (dictation provided by Janina Estrada NP). PRIMARY DIAGNOSES: 1. Left temporal lobe hemorrhagic contusion, status post fall. 2. Question of syncope, negative workup. 3. Hypertension. 4. Hyperlipidemia. 5. Diabetes. 6. Dubois's esophagus. 7. Depression. PAST SURGICAL HISTORY: 1. History of back surgery. 2. History of cyst removed from his neck. MEDICATIONS AT THE TIME OF DISCHARGE: 1. Diphenhydramine 25 mg p.o. daily p.r.n. 2. Aspirin 81 mg p.o. daily. 3. Acetaminophen 500 mg p.o. q.4 hours p.r.n. 4. Glipizide 5 mg p.o. b.i.d. 5. Tamsulosin 0.4 mg p.o. daily. 6. Fluticasone nasal spray daily. 7. Ferrous sulfate 325 mg p.o. daily. 8. Docusate 100 mg p.o. daily p.r.n. 9. Cetirizine 10 mg p.o. daily p.r.n. 10. Atorvastatin 40 mg p.o. daily. 11. Amlodipine 10 mg p.o. daily. HOSPITAL COURSE: Mr. Cooley is a 67-year-old male with a past medical history of hypertension, hyper lipidemia as well as Dubois's esophagus who presented to the hospital on 01/23/18 after a fall. Ple ase see the dictated H and P from Filemon Diaz NP, for complete details. In brief, the patient had bene shovelling snow outside when he fell. He did not recall the events that led to the fall. The next thing he remembered was coming to the hospital in ambulance. He denied any recent illnesses. I t was suspected that perhaps he had postconcussive syndrome and a possible syncopal episode requiring further workup and therefore, he was admitted to the hospital. CT brain read as follows: No intracranial mass or hemorrhage. Additional workup in the emergency room at the time of arrival include a cervical spine CT which show ed no fracture of the cervical spine evident. An EKG showed sinus rhythm and no evidence of ischemia . Maxillofacial CT which showed pansinusitis. No acute facial bone fracture. Transthoracic echocar diogram showed an ejection fraction of 65% with diastolic dysfunction noted, but no significant valvu lar abnormality. Finally the patient did receive an MRI on the day of admission, which did show smal l hemorrhagic contusion on the left temporal lobe versus small hemorrhagic infarct. The patient was admitted to the hospital. He was seen in consultation by Dr. Quinn and I refer you t o her note for details. Followup CT on 01/25/18 showed, there was no change from previous. She agre ed that this was most likely consistent with intraparenchymal contusion secondary to head trauma. Th e patient did have an EEG, which showed no epileptiform abnormalities. She recommended that the magdiel ent have a followup MRI in 8 weeks to make sure there is no evidence of anything potentially underlyi ng the area of hemorrhage and resolution is occurring after traumatic brain injury. The patient was also seen in consultation by Neurosurgery. I refer you to LIZZY Valdes, note for full details. T here was no indication for neurosurgical intervention. Mr. Cooley has been doing well on the day of discharge, 01/27/18. He has very mild dizziness when he first sits up from a lying position, but resolves within seconds. He is able to ambulate in his room without difficulty. The only other issues that have arisen is that the patient's blood pressure was elevated and he has been started on amlodipine, which I would like to continue at discharge. [facility], he was found to have a thumb fracture on arrival. Thumb x-rays showed fracture at the PIP riya nt on the left thumb. This was reviewed with Orthopedic Surgery. They recommended that the patient follow up this week for possible surgery on that thumb on Saturday. All of this has been reviewed extensively with the patient and his who is at the bedside and he is medically stable for discharge to home. DISPOSITION: Home. DIET: Low-fat, low-salt. ACTIVITY: Activity instructions were provided at length with the patient and his regarding slow progression of returning to normal activity levels in keeping with his TBI. I have encouraged him t o follow up closely with Shelli Addison NP, before resuming driving or any heavy physical activity. FOLLOWUP PLANS: 1. Please follow up with Shelli Cyn, [employer], in the next 1 to 2 weeks regarding this acute inpatien t admission and also to order MRI brain as well as check blood pressure given the addition of amlodip ine. 2. Please follow up with Dr. Pederson from orthopedic services regarding possible surgery for left thum b fracture. 3. Please follow up with Dr. Ceci Quinn in 8 weeks for review of the MRI of the brain. TIME SPENT: Approximately 75 minutes was spent on discharge of this patient; more than half the time was spent with the patient at the bedside reviewing the events leading up to this hospitalization, d uring this hospitalization, performing the physical examination, and reviewing my plan of care. JANINA ESTRADA NP [id number]/CPS #: [id number]
== END 2018-01-27 19:30 | disposition home or self-care (01) | DRG 84 ==
LOC: ED 12:17 → MEDTELE 17:59 → ICU 01-24 19:29 → OBSVTOIN 01-24 19:39 → MEDTELE 01-25 05:04
PROVIDERS: ADMIT Internal Medicine; ATTEND Internal Medicine
DX: S06.329A Contusion and laceration of left cerebrum with loss of consciousness of unspecified duration, initial encounter (principal); E11.9 Type 2 diabetes mellitus without complications; I49.9 Cardiac arrhythmia, unspecified; R55 Syncope and collapse; R29.810 Facial weakness; N40.0 Benign prostatic hyperplasia without lower urinary tract symptoms; K22.70 Barrett's esophagus without dysplasia; I10 Essential (primary) hypertension; E78.5 Hyperlipidemia, unspecified; S62.515A Nondisplaced fracture of proximal phalanx of left thumb, initial encounter for closed fracture; E86.0 Dehydration; F32.9 Major depressive disorder, single episode, unspecified; W18.30XA Fall on same level, unspecified, initial encounter; Z79.84 Long term (current) use of oral hypoglycemic drugs; Z79.1 Long term (current) use of non-steroidal anti-inflammatories (NSAID); Z79.82 Long term (current) use of aspirin; Z79.899 Other long term (current) drug therapy; Z88.5 Allergy status to narcotic agent; Z88.0 Allergy status to penicillin; Z82.49 Family history of ischemic heart disease and other diseases of the circulatory system; Y93.H1 Activity, digging, shoveling and raking; Y92.89 Other specified places as the place of occurrence of the external cause; Z80.1 Family history of malignant neoplasm of trachea, bronchus and lung
CPT/HCPCS: 36415; 70450; 70486; 70551; 72125; 80048; 80053; 80061; 81003; 81015; 83036; 83605; 83735; 84436; 84439; 84443; 84479; 84481; 84484; 85025; 85610; 87502; 87641; 93005; 93306; 93351; 95819; 99285; A9270-GY; G0378; G8978-GP-CI; G8979-GP-CH; J0360; J0461; J0780; J1250; J2270; J2405; J3490

== ENCOUNTER 2018-02-11 07:16 | Day surgery (SDC) | payer SELFPAY ==
--- NOTE | 2018-02-06 10:29 | HP ---
PREOPERATIVE HISTORY AND PHYSICAL: DATE OF SURGERY/ADMISSION: 02/11/18 [facility] ATTENDING SURGEON: Matilde Pederson MD.* (DICTATED BY LIZZY SAENZ) PROCEDURE: Closed reduction percutaneous pinning, left thumb. HISTORY OF PRESENT ILLNESS: This is a 67-year-old male with past medical history significant for diabetes, hypertension, hyperlipidemia, Dubois's esophagus, depression, and alcoholism, who sustained injury to his left thumb and his head when he was at work on 01/23/18. He is employed at the [employer] and was shoveling some snow [place] he slipped on some ice. He hit his head and jammed his thumb. He states he does not remember the fall or events leading up to or immediately following the fall. Eventually, he was able to get up and he walked into the druze to get help and he was transported to the [facility]. He ended up being admitted to the hospital for 5 days. X- rays showed a fracture of his left thumb. He also had imaging studies of his head, 2 CT scans and an MRI secondary to symptoms of concussion. The CT scan of his brain showed a small left temporal lobe intraparenchymal hematoma and suggestion of a small supratentorial left- sided subdural hematoma. Second CT scan on 01/25/18 was unchanged from the initial exam on 01/23/18. He also had a nuclear medicine stress test for some cardiac issues. He was not found to have any significant cardiac problems at this time, although a new systolic ejection murmur was detected on exam. Currently, the patient is continuing to complain of an occasional headache, some dizziness, and has been ambulating with a walker since the injury. He denies any visual disturbance. He has a followup with Dr. Quinn in 6 weeks and is to schedule a followup appointment with his primary care physician, Shelli Addison, at the OR in [place]. As far as his thumb is concerned, x-rays show a fracture at the distal phalanx with marked displacement. Dr. Pederson is recommending surgical intervention at this time. The patient has consented to proceed with closed reduction, percutaneous pinning of the left thumb. PAST MEDICAL HISTORY: 1. Diabetes. 2. Tinnitus. 3. Depression/anxiety. 4. Hypercholesterolemia. 5. GERD. 6. History of alcoholism. 7. Dubois's esophagus. PAST SURGICAL HISTORY: 1. Sinus surgery. 2. Cyst excision from behind ear 10 years ago. 3. Right wrist cyst removed for lumbar diskectomy. CURRENT MEDICATIONS: 1. Aspirin 81 mg daily. 2. Benadryl Allergy 25 mg p.r.n.. 3. Colace 100 mg p.r.n. 4. Ferrous sulfate 324 mg daily. 5. Flomax 0.4 mg daily. 6. Flonase Allergy Relief 50 mcg/ACT 1 spray in each nostril twice daily. 7. Glipizide 5 mg daily. 8. Humalog 100 units/mL. 9. Lipitor 40 mg daily. 10. Sertraline HCl 100 mg daily. 11. Tamsulosin HCl 0.4 mg daily. 12. Tylenol extra strength 500 mg q.4 hours p.r.n. 13. Zyrtec Allergy 10 mg daily. ALLERGIES: CODEINE, which causes hives. FAMILY MEDICAL HISTORY: Brain cancer and diabetes. SOCIAL HISTORY: The patient is employed at the [employer]. He is a former smoker, he quit approximately 20 years ago. Prior to that he smoked a pack and a half per day. He denies recreational drug use and reports being sober from alcohol 35 years. REVIEW OF SYSTEMS: General: Negative for fevers, chills, or night sweats. No known anesthesia problems. HEENT: Positive for occasional headache. Negative for lightheadedness or syncopal episodes, positive for mild dizziness. Integumentary: Negative for abrasions, lesions or open wounds. Cardiothoracic: Negative for hypertension, chest pain, palpitations or edema. Pulmonary: Negative for shortness of breath with exertion, chronic cough, COPD. GI: Positive for GERD. Negative for nausea, vomiting, diarrhea, constipation. : Negative for of nocturia, urinary frequency, urgency, history of UTIs or kidney problems. Musculoskeletal: Positive for current complaint. Neurological: Positive for history of concussion. Negative for paresthesias, numbness, history of seizure, stroke or epilepsy. Positive for depression/anxiety. Endocrine: Positive for diabetes. Negative for thyroid issues. Hematologic: Negative for easy bruising, anemia, excessive bleeding or history of DVT. Infectious Disease: Positive for history of MRSA. Negative for hepatitis C and HIV. PHYSICAL EXAMINATION GENERAL: Well-developed, well nourished 67-year-old male in no acute distress. VITAL SIGNS: Height 5 feet 7 inches, weight 170 pounds. Blood pressure 143/72. HEENT: Normocephalic, atraumatic. Pupils are equal, round, and reactive to light and accommodation. Extraocular movements are intact. He has a right periorbital ecchymosis. NECK: Supple. No palpable lymph nodes. Throat is clear. PULMONARY: Lungs are clear to auscultation bilaterally. No wheezes, rales, or rhonchi. CARDIOVASCULAR: Regular rate and rhythm. S1 and S2. Systolic ejection murmur detected on auscultation. ABDOMEN: Positive bowel sounds. Soft, nontender. NEUROLOGIC: Alert and oriented x3. Cranial nerves II through XII are intact. Speech is clear. No slurring or aphasia. The patient was able to name and recall 3/3 objects. He has coordinated finger to nose. No pronator drift. Sensation is intact throughout. MUSCULOSKELETAL: On exam of his left thumb, there is some erythema and swelling. He has pain with palpation at the IP joint. He has increased pain with extension of the IP joint. He has good flexion of the IP joint. Skin is intact. Neurovascular function is intact. IMAGING STUDIES: X-rays of the thumb AP, lateral and oblique show significantly displaced dorsal fracture fragment of the distal phalanx. The fragment is attached to his extensor tendon. Other imaging: CT scan of the brain on 01/23/18 shows a left temporal contusion. MRI of the brain on 01/14/18 showed some hemorrhage in the left middle cranial fossa in the anterior temporal lobe. CT of the brain on showed stable left temporal contusion, unchanged from CT scan of 01/23/18. ASSESSMENT: Left thumb fracture, concussion. PLAN: The patient is scheduled to undergo a left thumb closed reduction and percutaneous pinning with Dr. Pederson on 02/11/18. He will return to the office 10 to 14 days postop for followup and suture removal. A prescription for postoperative pain medication will be prescribed on the day of surgery. LIZZY SAENZ [id number]/[facility] #: [id number] [facility] MEDICAL CENTERWillie
[~2018-02-11 07:16] MED LIST: Buffered Lidocaine 0.9% SYRIN* 5 ML/SYR SYRINGE INTRADERM ONE; DiMENhydriNATE IV* 50 MG/ML VIAL IV PUSH PRN; Famotidine IV* 10 MG/ML 2 ML (20 mg) IV ONE; Morphine INJ* 2 MG/ML 1 ML CARPUJECT IV PRN; Naloxone* 0.4 MG/ML 1 ML VIAL IV PRN; PROCHLORPERAZINE INJ 5 MG/ML 2 ML VIAL IV PRN; Scopolamine 1.5 mg* PATCH TRANSDERM PRN; fentaNYL* 50 MCG/ML 2 ML VIAL (100 MCG VIAL) IV PRN; oxyCODONE/Acetamin 5/325 MG* TAB PO PRN
[2018-02-11] MEDS ORDERED: Famotidine IV* 10 MG/ML 2 ML (20 mg) ONE (07:25)
[2018-02-11] MEDS ORDERED: ceFAZolin 2 GM in 100 MLS NS (*) BAG IVPB ONE (07:25)
[2018-02-11] MEDS ORDERED: fentaNYL* 50 MCG/ML 2 ML VIAL (100 MCG VIAL) ONE (08:24)
[2018-02-11] MEDS ORDERED: Midazolam* 1 MG/ML 5 ML VIAL (5 MG) ONE (08:24)
[2018-02-11] MEDS ORDERED: Lidocaine 1% INJ* 10 MG/ML 30 ML SDV ONE (08:50)
[2018-02-11] MEDS ORDERED: Propofol* 10 MG/ML 20 ML BTL IV PUSH ONE (09:27)
[2018-02-11] MEDS ORDERED: Dexamethasone IV* 4 MG/ML 1 ML (4 MG) ONE (09:27)
[2018-02-11] MEDS ORDERED: Ondansetron INJ* 2 MG/ML VIAL ONE (09:27)
[2018-02-11] MEDS ORDERED: Ketorolac INJ* 30 MG/ML 1 ML VIAL ONE (09:27)
[2018-02-11 10:19] VITALS: BP 188/67
--- NOTE | 2018-02-12 06:01 | OP ---
CC: Dr. Pederson OPERATIVE REPORT: DATE OF OPERATION: 02/11/18 DATE OF : 48 SURGEON: Dr. Pederson. ACCOUNTS PAYABLES CLERK: LIZZY Hernandez ANESTHESIA: Local MAC. PRE-OP DIAGNOSIS: Displaced fracture of the distal phalanx of the left thumb. POST-OP DIAGNOSIS: Displaced fracture of the distal phalanx of the left thumb. OPERATIVE PROCEDURE: Closed reduction pinning, left thumb distal phalanx. ESTIMATED BLOOD LOSS: 0. INDICATION FOR PROCEDURE: Mateusz is a 67-year-old man who fell at work after getting lightheaded. He suffered a concussion and a fracture of his left thumb. He has a displaced fracture of the distal ph alanx, which is intra-articular. He presents for closed reduction pinning. DESCRIPTION OF PROCEDURE: The patient was brought to the operating room, was given a sedation anesth etic and a digital block with 10 cc of 1% plain lidocaine. The skin of his left hand and forearm was prepped and draped in the usual sterile fashion. The hand and forearm were not exsanguinated and we did not use the tourniquet during the procedure. The dorsal fragment was reduced and then a dorsal extension blocking pin was placed just proximal to the dorsal fragment and into the proximal phalanx. We then brought the remainder of the distal phalanx into full extension of the DIP joint and a 0.04 5 inch K-wire was driven retrograde across the DIP joint. This held the fracture fragments in approx imation and in good position and the joint was not subluxed. The pins were bent and cut. Dressed wi th Xeroform, 4 x 4, Webril, and an AlumaFoam splint. The patient tolerated the procedure well and wa s brought to the recovery room in good condition. [id number]/[facility] #: [id number]
--- NOTE | 2018-02-12 12:54 | RAD ---
INDICATION: Left thumb distal phalanx close reduction, percutaneous pinning. COMPARISON: Appear seated is made with a prior x-ray study of the left thumb from February 05, 2018. TECHNIQUE: 2 minutes and 16 seconds of intermittent fluoroscopic guidance were provided and 2 spot films of the left thumb were obtained in the operating room. FINDINGS: The films demonstrate placement of 3 K wires around the fracture site at the dorsal base of the distal phalanx. IMPRESSION: INTRAOPERATIVE CONTROL FILMS. CPT II Codes: 6045F
[2018-02-14] MEDS ORDERED: Scopolamine PATCH Remove* 1 NOTE MISC PATCH OFF ONE (05:53)
== END 2018-02-11 09:54 | disposition home or self-care (01) ==
LOC: OREAST 07:16
PROVIDERS: ATTEND Orthopaedic Surgery
DX: S62.522A Displaced fracture of distal phalanx of left thumb, initial encounter for closed fracture (principal); S06.0X0A Concussion without loss of consciousness, initial encounter; W19.XXXA Unspecified fall, initial encounter; E11.9 Type 2 diabetes mellitus without complications; F32.9 Major depressive disorder, single episode, unspecified; E78.00 Pure hypercholesterolemia, unspecified; K21.9 Gastro-esophageal reflux disease without esophagitis; Z88.5 Allergy status to narcotic agent; Z87.891 Personal history of nicotine dependence; Z79.82 Long term (current) use of aspirin; Z79.4 Long term (current) use of insulin
CPT/HCPCS: 76001; C1776; J1100; J1885; J2250; J2405; J2704; J3010

== ENCOUNTER 2018-03-18 16:56 | Emergency (ER) | payer MEDICARE, OTHER ==
--- OUTSIDE RECORDS SUMMARY | 2018-03-18 17:42 | XMS REPORT ---
:1950 External Reference #:[id number] Author Organization [facility] Address [address] [address] Phone [phone] Care Team Providers Name Role Phone Shelli Addison FNP Primary Care Physician Unavailable Payers Type Date Identification Numbers Payment Provider Subscriber Medicare Primary Effective: Policy Number: Medicare Mateusz Cooley 2017 [id number] PayID: [id number] [address] [place] [address] Workers Compensation Effective: 2018 Policy Number: Quan Cooley [id number] Onset: 2018 Group Name: 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 ETOH Use Denies alcohol use Smoking Patient is a former smoker Exercise Type/Frequency Exercises sporadically Allergies, Adverse Reactions, Alerts Date Description Reaction Status Severity Comments 02/05/2018 Codeine active Medications Medication Date Status Form Strength Qnty SIG Indications Ordering Provider Glipizide // Active Tablets 5mg 1 by Unknown 0000 mouth every day Ferrous / Active Tablets DR 324(65Fe) 1 by Unknown Sulfate 0000 mg mouth daily (pt not taking) Sertraline / Active Tablets 100mg 1 by Unknown HCL 0000 mouth every day Tamsulosin / Active Capsules 0.4mg 1 by Unknown HCL 0000 mouth every day Benadryl / Active Capsules 25mg prn Unknown Allergy 0000 Aspirin / Active Tablets DR 81mg 1 by Unknown Adult Low 0000 mouth Dose every day Flomax / Active Capsules 0.4mg 1 by Unknown 0000 mouth every day Flonase / Active Suspension 50mcg/Act spray 1 Unknown Allergy 0000 spray in Relief each nostril twice daily Colace / Active Capsules 100mg 1 tab by Unknown 0000 mouth 2-3 times a day as needed Lipitor / Active Tablets 40mg 1 by Unknown 0000 mouth at bedtime Zyrtec / Active Capsules 10mg take one Unknown Allergy 0000 tablet by mouth in the evening Tylenol / Active Tablets 500mg q 4 hrs Unknown Extra 0000 prn Strength Humalog / Active Solution 100Unit/ML Unknown 0000 Cartridge [place] 02/11/ Hx Tablets 5-325mg 15tabs one tab Matilde 2018 - by mouth Mat Pederson 02/20/ every 4-6 2018 hours as needed pain Tylenol 02/05/ Hx Tablets 500mg q 4 hrs Matilde Extra 2018 - prn Mat Pederson Strength 2017 Vital Signs Date Vital Result Comment 02/20/2018 Height 67 inches 5'7" Weight 170.00 lb Heart Rate 101 /min BP Systolic 170 mmHg BP Diastolic 76 mmHg Respiratory Rate 16 /min Body Temperature 98.0 F Pain Level 2 BMI (Body Mass Index) 26.6 kg/m2 02/05/2018 Height 67 inches 5'7" Weight 170.00 lb BP Systolic 143 mmHg BP Diastolic 72 mmHg Respiratory Rate 15 /min Pain Level 9 BMI (Body Mass Index) 26.6 kg/m2 Results Test Date Test Result H/L Range Note Laboratory test finding 02/11/2018 Point of Care Glucose 172 mg/dL High 70 -100 1 1 Fuel Cell Test Engineer: [id number] Procedures Date CPT Code Description Status 02/11/2018 92186 Percutaneous Skeletal Fixation Of Distal Phalangeal Completed FX,Finger/Kiera 02/11/2018 66374 Percutaneous Skeletal Fixation Of Distal Phalangeal Completed FX,Finger/Kiera 01/27/2018 30155 Stress ECHO Interpretation/Report Hospital Completed 01/27/2018 44231 Treadmill Interp/Report Only Completed 01/27/2018 69684 Stress Test Supervsn W/Out I/R Completed 01/25/2018 33540 EEG Recording Awake & Drowsy Completed 01/24/2018 79317 ECHO Transthorasic Realtime 2D W Doppler & Color Completed Flow Hosp 10/31/2004 74474 Treadmill Interp/Report Only Completed 10/31/2004 56964 Stress Test Supervsn W/Out I/R Completed 02/01/2004 18592 Color Doppler Completed 02/01/2004 83670 Pulse Doppler & Continuous Wave Completed 02/01/2004 27494 Echocardiogram Completed Encounters Type Date Location Provider CPT E/M Dx Office Visit 02/05/2018 [facility], [address] S62.522A 10:00a Junior Rivero Office Visit 01/27/2018 [facility] Janina Estrada, N.P. [address]8463 R55 3:02p Assoc, Hospitalists E11.8 S00.93xD E78.5 Office Visit 01/26/2018 3:01p [facility], Paulina Núñez, MOBILE PET GROOMER 16826 R55 Hospitalists E11.8 S00.93xD E78.5 Office Visit 01/25/2018 2:20p [facility] [address] S06.350A Office Visit 01/25/2018 3:00p [facility], Paulina Núñez, [address]894 R55 Hospitalists MOBILE PET [employer]OOMER E11.8 S00.93xD Office Visit 01/25/2018 7:00a [facility] Janny Thrasher, [address]395 S06.320A [facility] PA-C Office Visit 01/23/2018 2:[facility]p [facility] Sohan Diaz, [address] R55 Hospitalists N.P. E11.8 E78.5 N40.0 Plan of Care Future Appointment(s):03/20/2018 2:30 pm - [facility] Pederson M.[facility]. [facility]03/05/2018 9:00 am - Ceci Quinn MD at [facility] [place]02/20/2018 - Matilde Pederson M.D.S62.522A Disp fx of distal phalanx of left thumb, init for clos fxFollow up:Follow up: 4 weeks
[2018-03-18 18:35] VITALS: BP 139/77
[2018-03-18] MEDS ORDERED: Tetan/Diph/Pertus SYR(Tdap)* 0.5 ML SYR(BOOSTRIX) use SYR IM ONE (18:47)
--- NOTE | 2018-03-18 18:48 | UC ---
Head Injury HPI - HPI Summary HPI Summary: At 2:30 today patient tripped and fell and hit his head noted gradual his home he has an abrasion above his left eye and a small skin avulsion. He had no loss consciousness no neuro deficits or complaints now. Is concerned because he has had a head injury the past the resulted in Subdural hematoma here for evaluation - History Of Current Complaint Chief Complaint: UCHeadInjury Stated Complaint: FACIAL WOUNDS S/P FALL Time Seen by Provider: 03/18/18 18:43 Hx Obtained From: Patient Mechanism Of Injury: fall Onset/Duration: Sudden Onset Severity Currently: Mild Severity Initially: Mild Pain Intensity: 3 Pain Scale Used: 0-10 Numeric Aggravating Factor(s): Nothing Alleviating Factor(s): Nothing Associated Signs And Symptoms: Positive: Negative - Allergies/Home Medications Allergies/Adverse Reactions: Allergies Allergy/AdvReac Type Severity Reaction Status Date / Time codeine Allergy "WILD AND Verified 03/18/18 18:23 OUT OF CONTROL" PMH/Surg Hx/FS Hx/Imm Hx Endocrine History: Diabetes, Dyslipidemia Cardiovascular History: Hypertension Psychological History: Depression - Surgical History Surgical History: Yes Surgery Procedure, Year, and Place: lumbar surgery. right wrist carpal tunnel. right wrist cyst removal. sinus surgery. wound repair after injury to forehead with golf club (declines metal or fracture repair). CYST REMOVE FROM RIGHT EAR - Family History Known Family History: Positive: Diabetes - Social History Occupation: Employed Full-time Lives: With Family Alcohol Use: None Substance Use Type: None Smoking Status (MU): Former Smoker Amount Used/How Often: 1 1/2 PPD X 20 YEARS When Did the Patient Quit Smoking/Using Tobacco: 18 YEARS AGO - Immunization History Most Recent Influenza Vaccination: this flu season Most Recent Pneumonia Vaccination: this year Review of Systems Constitutional: Negative Skin: Other - abrasion and avulsion about left eye Eyes: Negative ENT: Negative Respiratory: Negative Cardiovascular: Negative Gastrointestinal: Negative Genitourinary: Negative Motor: Negative Neurovascular: Negative Musculoskeletal: Negative Neurological: Negative Psychological: Negative Is Patient Immunocompromised?: No All Other Systems Reviewed And Are Negative: Yes Physical Exam Triage Information Reviewed: Yes Appearance: Well-Appearing, No Pain Distress, Well-Nourished Vital Signs: Initial Vital Signs Temp 97.9 F 03/18/18 18:26 Pulse 72 03/18/18 18:26 Resp 16 03/18/18 18:26 BP 139/77 03/18/18 18:26 Pulse Ox 97 03/18/18 18:26 Vital Signs Reviewed: Yes Eye Exam: Normal Eyes: Positive: Conjunctiva Clear ENT Exam: Normal ENT: Positive: Normal ENT inspection, Hearing grossly normal, Pharynx normal, TMs normal, Uvula midline. Negative: Nasal congestion, Tonsillar swelling, Tonsillar exudate, Trismus, Muffled voice, Hoarse voice, Sinus tenderness Dental Exam: Normal Neck exam: Normal Neck: Positive: Supple, Nontender, No Lymphadenopathy Respiratory Exam: Normal Respiratory: Positive: Chest non-tender, No respiratory distress, No accessory muscle use Cardiovascular Exam: Normal Cardiovascular: Positive: RRR, Pulses Normal, Brisk Capillary Refill Musculoskeletal Exam: Normal Musculoskeletal: Positive: Strength Intact, ROM Intact, No Edema Neurological Exam: Normal Neurological: Positive: Alert, Muscle Tone Normal Psychological Exam: Normal Skin Exam: Other Skin: Positive: Other - 1 cm skin avulsion above the left eyebrow no bleeding very superficial Diagnostics - Radiology No standard instances Xray Interpretation: No Acute Changes Radiology Interpretation Completed By: Radiologist Head Injury Course/Dx - Course Course Of Treatment: Soap and water washes skin avulsion, and abrasions apply triple antibiotic or bacitracin daily. Follow-up with primary care doctor in 2 days. To emergency department for any neurological signs symptoms or any concerns - Differential Dx/Diagnosis Provider Diagnoses: Head injury, 1cm x3 mm skin avulsion above left eyebrow Discharge - Sign-Out/Discharge Documenting (check all that apply): Discharge - Discharge Plan Condition: Stable Disposition: HOME Patient Education Materials: Head Injury (ED), Skin Avulsion (ED), Abrasion (ED ) Referrals: Shelli Addison [Primary Care Provider] - 2 Days - Billing Disposition and Condition Condition: STABLE Disposition: HOME
--- NOTE | 2018-03-18 19:54 | RAD ---
INDICATION: Head injury. COMPARISON: Comparison is made with a prior CT of the brain from January 25, 2018. TECHNIQUE: Contiguous axial sections of the brain were obtained from the skull base to the vertex without contrast. The exam is slightly limited due to positioning. FINDINGS: The ventricles, cisterns and sulci are enlarged consistent with diffuse atrophy. No significant focal abnormality or mass effect is seen. There is no evidence for hemorrhage. The previously noted small subdural hematoma along the left tentorium is no longer visualized. Soft tissue swelling is noted anterior to the frontal sinuses. No fracture is seen. There is mucosal thickening within the frontal and ethmoid sinuses. The remaining paranasal sinuses and mastoid air cells appear clear. IMPRESSION: 1. NO EVIDENCE FOR ACUTE INTRACRANIAL ABNORMALITY. 2. SLIGHTLY LIMITED EXAM.
== END 2018-03-18 20:06 | disposition home or self-care (01) ==
LOC: UCCORT 16:56
DX: S01.102A Unspecified open wound of left eyelid and periocular area, initial encounter (principal); E11.9 Type 2 diabetes mellitus without complications; I10 Essential (primary) hypertension; Z87.891 Personal history of nicotine dependence; Z88.5 Allergy status to narcotic agent; W01.0XXA Fall on same level from slipping, tripping and stumbling without subsequent striking against object, initial encounter; Y92.9 Unspecified place or not applicable
CPT/HCPCS: 70450; 90471; 90715; 99212; G0463

== ENCOUNTER 2018-03-19 07:36 | Emergency (ER) | payer MEDICARE ==
[2018-03-19 07:54] VITALS: BP 142/64
--- NOTE | 2018-03-19 08:22 | UC ---
Upper Extremity HPI - HPI Summary HPI Summary: Left finger swelling. He fell last night and was seen here last night and was doing well but today noted left ring finger swelling and tenderness. He would like ringer finger evaluated. He denies numbness or weakness. - History of Current Complaint Chief Complaint: UCUpperExtremity Stated Complaint: (L) RING FINGER COMPLAINT Time Seen by Provider: 03/19/18 08:14 Hx Obtained From: Patient Onset/Duration: Sudden Onset, Lasting Hours Severity Initially: Moderate Severity Currently: Moderate Pain Intensity: 5 Location Of Pain: Is Discrete @ Character: Dull, Aching Aggravating Factor(s): Movement, Extension, Abduction, Adduction Alleviating Factor(s): Rest Associated Signs And Symptoms: Positive: Swelling - Allergies/Home Medications Allergies/Adverse Reactions: Allergies Allergy/AdvReac Type Severity Reaction Status Date / Time codeine Allergy "WILD AND Verified 03/19/18 07:55 OUT OF CONTROL" PMH/Surg Hx/FS Hx/Imm Hx Previously Healthy: No - Fall back in [facility] on ice with head injury and left thumb injury. - Surgical History Surgical History: Yes Surgery Procedure, Year, and Place: lumbar surgery. right wrist carpal tunnel. right wrist cyst removal. sinus surgery. wound repair after injury to forehead with golf club (declines metal or fracture repair). CYST REMOVE FROM RIGHT EAR - Family History Known Family History: Positive: Diabetes - Social History Alcohol Use: None Substance Use Type: None Smoking Status (MU): Former Smoker Amount Used/How Often: 1 1/2 PPD X 20 YEARS When Did the Patient Quit Smoking/Using Tobacco: 18 YEARS AGO - Immunization History Most Recent Influenza Vaccination: this flu season Most Recent Pneumonia Vaccination: this year Review of Systems Musculoskeletal: Edema All Other Systems Reviewed And Are Negative: Yes Physical Exam Triage Information Reviewed: Yes Appearance: Well-Appearing, No Pain Distress, Well-Nourished Vital Signs: Initial Vital Signs Temp 97.7 F 03/19/18 07:50 Pulse 74 03/19/18 07:50 Resp 16 03/19/18 07:50 BP 142/64 03/19/18 07:50 Pulse Ox 96 03/19/18 07:50 Vital Signs Reviewed: Yes Eyes: Positive: Conjunctiva Clear. Negative: Conjunctiva Inflamed ENT: Positive: Normal ENT inspection Neck: Positive: Supple, Nontender, No Lymphadenopathy Respiratory: Positive: Lungs clear, Normal breath sounds, No respiratory distress, No accessory muscle use. Negative: Respiratory distress, Decreased breath sounds, Accessory muscle use, Crackles, Rhonchi, Stridor, Wheezing Cardiovascular: Positive: Brisk Capillary Refill Abdomen Description: Positive: No Organomegaly. Negative: Distended, Guarding Musculoskeletal Exam: Other - left ring finger swelling. He has intact elementary substitute teacher strength and is able to fully extend. There is no malignment or deformity. Neurological: Positive: Alert, Muscle Tone Normal. Negative: Fatigued Psychological: Positive: Age Appropriate Behavior Skin: Negative: rashes Upper Extremity Course/Dx - Course Course Of Treatment: No fracture on x ray. No obvious ligamentous or tendonous injury. - Differential Dx/Diagnosis Differential Diagnosis/HQI/PQRI: Fracture (Open), Fracture (Closed), Hematoma, Strain, Sprain Provider Diagnoses: Finger injury left ring finger after fall. Discharge - Sign-Out/Discharge Documenting (check all that apply): Discharge - Discharge Plan Condition: Good Disposition: HOME Patient Education Materials: Finger Sprain (ED) Referrals: Shelli Addison [Primary Care Provider] - - Billing Disposition and Condition Condition: GOOD Disposition: HOME
--- NOTE | 2018-03-19 08:42 | RAD ---
INDICATION: Left hand injury COMPARISON: None TECHNIQUE: AP, lateral, and oblique views were obtained. FINDINGS: There is no acute bony change. There are postoperative changes about the thumb. There is minor osteophytes are change about the interphalangeal joints. There is mild soft tissue swelling about the fourth digit. IMPRESSION: NO ACUTE FRACTURE.
== END 2018-03-19 08:36 | disposition home or self-care (01) ==
LOC: UCCORT 07:36
DX: S69.92XA Unspecified injury of left wrist, hand and finger(s), initial encounter (principal); W19.XXXA Unspecified fall, initial encounter; Y93.9 Activity, unspecified; Y92.9 Unspecified place or not applicable; Z88.5 Allergy status to narcotic agent; Z87.891 Personal history of nicotine dependence
CPT/HCPCS: 99211; G0463

== ENCOUNTER 2019-10-26 14:05 | Emergency (ER) | payer MEDICARE, OTHER ==
[2019-10-26 14:21] VITALS: BP 180/77
--- NOTE | 2019-10-26 15:19 | UC ---
Knee Pain HPI - HPI Summary HPI Summary: 69 year old male with h/o knee injury several years ago, no official diagnosis presents today with knee swelling, pain on right knee. no fever, chills. patient states was crawling on floor cleaning up dishes on Saturday, since than has had increased swelling, pain in right knee. + mild redness. + pain wth ambulation. no prior symptoms like this, no h/o MRSA, no recent hospitlizations/ NH stays. - History of Current Complaint Chief Complaint: UCLowerExtremity Stated Complaint: SWOLLEN PAINFUL KNEE Time Seen by Provider: 10/26/19 15:10 Hx Obtained From: Patient Onset/Duration: Sudden Onset, Lasting Days Severity Initially: Moderate Severity Currently: Moderate Pain Intensity: 5 Pain Scale Used: 0-10 Numeric Character: Sharp, Aching Aggravating Factor(s): Movement, Weight Bearing Alleviating Factor(s): Rest Associated Signs And Symptoms: Positive: Swelling, Redness. Negative: Bruising , Fever, Weakness, Numbness, Tingling - Allergies/Home Medications Allergies/Adverse Reactions: Allergies Allergy/AdvReac Type Severity Reaction Status Date / Time codeine Allergy "WILD AND Verified 10/26/19 14:21 OUT OF CONTROL" PMH/Surg Hx/FS Hx/Imm Hx Previously Healthy: Yes - Surgical History Surgical History: Yes Surgery Procedure, Year, and Place: lumbar surgery. right wrist carpal tunnel. right wrist cyst removal. sinus surgery. wound repair after injury to forehead with golf club (declines metal or fracture repair). CYST REMOVE FROM RIGHT EAR - Family History Known Family History: Positive: Diabetes, Non-Contributory - Social History Alcohol Use: None Substance Use Type: None Smoking Status (MU): Former Smoker Amount Used/How Often: 1 1/2 PPD X 20 YEARS When Did the Patient Quit Smoking/Using Tobacco: 18 YEARS AGO - Immunization History Most Recent Influenza Vaccination: this flu season Most Recent Pneumonia Vaccination: this year Review of Systems All Other Systems Reviewed And Are Negative: Yes Constitutional: Negative: Fever, Chills, Fatigue Skin: Positive: Other - swelling right knee Respiratory: Positive: Negative Cardiovascular: Positive: Negative Gastrointestinal: Positive: Negative Genitourinary: Positive: Negative Musculoskeletal: Positive: Decreased ROM, Edema. Negative: Arthralgia, Calf Tenderness, Myalgia Neurological: Positive: Negative Is Patient Immunocompromised?: No Physical Exam Triage Information Reviewed: Yes Appearance: Well-Appearing, Well-Nourished, Pain Distress - mild Vital Signs: Initial Vital Signs Temp 98.0 F 10/26/19 14:16 Pulse 80 10/26/19 14:16 Resp 18 10/26/19 14:16 BP 180/77 10/26/19 14:16 Pulse Ox 97 10/26/19 14:16 Vital Signs Reviewed: Yes Eyes: Positive: Conjunctiva Clear Musculoskeletal: Positive: Other: - Edema over pre-patellar bursea and deep infrapatellar bursa with mild warmth, mild erythema. + TTP over each, worse over distal. ROM R knee- 2-110 with pain at term flex, ext. No TIb plat tenderness, no MJL/ LJL tenderness. no instability noted with keri/ veronica stresses SITLT distal to knee, neg homans R. Neurological: Positive: Alert, Muscle Tone Normal, Other: - SITLT distal to right knee Psychological Exam: Normal Skin: Positive: Other - minimal erythema, blanching, at R knee, mild TTP. no ecchymosis. no lymphangitic streaking. full ROM ankle without pain, no homans. Knee Pain Course/Dx - Course Course Of Treatment: right knee bursistis, likely infectious - ANtibiotics as directed- four times a day for 10 days to decrease swelling, infection - Continue to monitor area- if redness increases, swelling increases, pain increases or if you develop a fever > 100.5 please go to ER for evaluation - Keep leg elevated, iced as much as possible - Compression dressing on right knee as much as possible to help decrease swelling - Increase fluid intake while taking antibiotics - Follow up with orthopedics within 5-7 days - Differential Dx/Diagnosis Provider Diagnosis: Bursitis of right knee Discharge ED - Sign-Out/Discharge Documenting (check all that apply): Patient Departure All imaging exams completed and their final reports reviewed: Yes - Discharge Plan Condition: Good Disposition: HOME Prescriptions: Cephalexin CAP* [Keflex CAP*] 500 mg PO QID #40 cap Patient Education Materials: Knee Bursitis (ED) Referrals: Shelli Addison [Primary Care Provider] - Anuj Lane MD [Medical Doctor] - Additional Instructions: - ANtibiotics as directed- four times a day for 10 days to decrease swelling, infection - Continue to monitor area- if redness increases, swelling increases, pain increases or if you develop a fever > 100.5 please go to ER for evaluation - Keep leg elevated, iced as much as possible - Compression dressing on right knee as much as possible to help decrease swelling - Increase fluid intake while taking antibiotics - Follow up with orthopedics within 5-7 days - Billing Disposition and Condition Condition: GOOD Disposition: Home - Attestation Statements Provider Attestation: Per institutional requirements, I have reviewed the chart, however, I was not consulted specifically or made aware of this patient by the midlevel provider. I did not personally evaluate, interact with , or disposition this patient.
== END 2019-10-26 15:52 | disposition home or self-care (01) ==
LOC: UCEAST 14:05
DX: M71.561 Other bursitis, not elsewhere classified, right knee (principal); Z88.5 Allergy status to narcotic agent; Z87.891 Personal history of nicotine dependence
CPT/HCPCS: 99202; G0463

== ENCOUNTER 2020-03-14 10:09 | Emergency (ER) | payer MEDICARE, OTHER ==
--- NOTE | 2020-03-14 10:33 | UC ---
Respiratory Complaint HPI - HPI Summary HPI Summary: 69-year-old male who has had an occasional cough over the past 4 weeks. He states occasionally when he coughs he does have some yellow sputum. He is not presently a smoker. He denies any fever, chills. He states he has had some ringing in his ear so he thinks he might need to have some earwax removed. He denies any shortness of breath. He denies any exposure to anyone with Covid-19 or anyone being tested for Covid 19. He does have a son who had an earache and sinus congestion recently who is also being checked today. The patient is requesting Covid 19 testing. The history was taken over the telephone by the triage nurse. Following that I was in full protective PPE and interviewed the patient and examined him. - History of Current Complaint Chief Complaint: UCGeneralIllness Stated Complaint: COUGH,SORE THROAT Time Seen by Provider: 03/14/20 10:31 Hx Obtained From: Patient Onset/Duration: Gradual Onset, Lasting Weeks Timing: Intermittent Episodes Severity Initially: Mild Severity Currently: Mild Pain Intensity: 0 Character: Cough: Productive - Patient states rarely he can produce some yellow sputum, he denies shortness of breath. He thinks he has some postnasal drainage. Associated Signs And Symptoms: Positive: Nasal Congestion - Allergies/Home Medications Allergies/Adverse Reactions: Allergies Allergy/AdvReac Type Severity Reaction Status Date / Time codeine Allergy "WILD AND Verified 03/14/20 10:17 OUT OF CONTROL" Home Medications: Home Medications Sertraline* [Zoloft*] 2 tab PO QAM 02/06/18 [History Confirmed 03/14/20] PMH/Surg Hx/FS Hx/Imm Hx Previously Healthy: Yes Endocrine History: Diabetes Cardiovascular History: Hypertension - Surgical History Surgical History: Yes Surgery Procedure, Year, and Place: lumbar surgery. right wrist carpal tunnel. right wrist cyst removal. sinus surgery. wound repair after injury to forehead with golf club (declines metal or fracture repair). 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 Substance Use Type: None Smoking Status (MU): Former Smoker Amount Used/How Often: 1 1/2 PPD X 20 YEARS When Did the Patient Quit Smoking/Using Tobacco: 30 years ago - Immunization History Most Recent Influenza Vaccination: this flu season Most Recent Pneumonia Vaccination: this year Review of Systems All Other Systems Reviewed And Are Negative: Yes Constitutional: Negative: Fever, Chills ENT: Positive: Ear Ache - Patient states he has ringing in his ears which she has had for over one and a half years however he states occasionally he can get ear wax washed from his ears and the ringing improves., Nasal Discharge - Patient states he has mild postnasal drainage. Respiratory: Positive: Cough - Patient will cough where he can occasionally raise yellow sputum. Denies any shortness of breath. Negative: Shortness Of Breath Is Patient Immunocompromised?: No Physical Exam Triage Information Reviewed: Yes Appearance: Well-Appearing, No Pain Distress, Well-Nourished Vital Signs Reviewed: Yes Eyes: Positive: Conjunctiva Clear ENT: Positive: Pharynx normal, TMs normal, Uvula midline, Other - There is a small amount of cerumen in the left ear canal but it does not occlude visualization of the tympanic membrane. Neck: Positive: Supple, Nontender, No Lymphadenopathy Respiratory: Positive: Lungs clear, Normal breath sounds, No respiratory distress, No accessory muscle use Cardiovascular: Positive: RRR, No Murmur, Pulses Normal, Brisk Capillary Refill Musculoskeletal Exam: Normal Neurological Exam: Normal Psychological Exam: Normal Skin Exam: Normal Respiratory Course/Dx - Course Course Of Treatment: The patient is comfortable here and didn't know distress. Covid 19 testing was performed. The pt tolerated the procedure well. I was able to remove the cerumen from the left ear canal with a lighted currette however it did cause a small abrasion to the ear canal. I advised patient that because he wanted the Covid 19 testing he has to remain at home until he receives results. The patient is agreeable to this plan of action. At this point time I do not feel that he needs a chest x-ray nor an antibiotic. I think the productive cough is more from postnasal drainage and the patient is to follow-up with his primary care provider if any worsening symptoms. - Differential Dx/Diagnosis Provider Diagnosis: Cough Discharge ED - Sign-Out/Discharge Documenting (check all that apply): Patient Departure All imaging exams completed and their final reports reviewed: No Studies - Discharge Plan Condition: Good Disposition: HOME Patient Education Materials: Upper Respiratory Infection (ED) Forms: COVID-19 Tested & Isolation Referrals: Shelli Addison [Primary Care Provider] - Additional Instructions: Increase fluids, follow-up with your primary care provider if no improvement in the next 5-7 days. If you develop any shortness of breath, difficulty breathing or worsening symptoms call your primary care provider or go to the emergency room. - Billing Disposition and Condition Condition: GOOD Disposition: Home - Attestation Statements Provider Attestation: I was available for consult. This patient was seen by the MIGUEL. The patient was not presented to, seen by, or examined by me. -Shannen
[2020-03-14 11:56] VITALS: BP 176/80
== END 2020-03-14 11:26 | disposition home or self-care (01) ==
LOC: UCCORT 10:09
DX: R05 Cough (principal); R09.81 Nasal congestion; H61.22 Impacted cerumen, left ear; Z20.828 Contact with and (suspected) exposure to other viral communicable diseases; E11.9 Type 2 diabetes mellitus without complications; I10 Essential (primary) hypertension; Z88.5 Allergy status to narcotic agent; Z87.891 Personal history of nicotine dependence
CPT/HCPCS: 69210; 87635; 99211; G0463; G2023

== ENCOUNTER 2022-05-31 18:37 | Observation (INO) ==
[2022-05-31] MEDS ORDERED: Iohexol 350 (CONTRAST) 500 ML MDV IV ONE (18:53)
[2022-05-31 19:21] LABS: ABS Eosinophils 0.1 10^3/ul (0-0.6); ABS Monocytes 0.8 10^3/ul (0-0.8); ABS Neutrophils 8.9 10^3/ul (1.5-7.7); Hematocrit 35 % (42-52); Hemoglobin 11.6 g/dL (14.0-18.0); Lymphocyte % 9.3 %; Mean Corpuscular HGB Conc 33 g/dL (31-36); Mean Corpuscular Hemoglobin 31 pg (27-31); Mean Corpuscular Volume 92 fL (80-94); Mean Platelet Volume 7.5 fL (7.4-10.4); Platelet Count 240 10^3/uL (150-450); Red Blood Count 3.81 10^6 /uL (4.18-5.48); Red Cell Distribution Width 14 % (10-15); White Blood Count 10.9 10^3/uL (3.5-10.8)
[2022-05-31 19:38] LABS: Activated Partial Thrombo Time 27.3 seconds (26.0-38.0); INR 1.15 (0.86-1.15)
[2022-05-31] MEDS: NS 0.9% 1000 ml BAG 1,000 ML IV ONE ×2 (19:44→19:48)
[2022-05-31 19:57] LABS: Albumin 3.5 g/dL (3.2-5.2); Albumin/Globulin Ratio 1.3 (1-3); Calcium 8.6 mg/dL (8.6-10.3); Globulin 2.7 g/dL (2-4); HDL Cholesterol 25.7 mg/dL; Potassium 3.9 mmol/L (3.5-5.0); Total Bilirubin 0.6 mg/dL (0.2-1.0); Total Protein 6.2 g/dL (6.4-8.9); eGFR CKD-EPI 71.3 (>60)
[2022-05-31 20:13] LABS: High Sensitivity Troponin 1 Hr 19 pg/mL (<20)
[2022-05-31] MEDS ORDERED: Albuterol HFA INHALER 8 gm MDI INH PRN (21:36)
[2022-05-31] MEDS ORDERED: Dextrose 50% Syringe 50 ml 25 GM/50 ML SYRINGE IV PUSH PRN (21:37)
[2022-06-01] MEDS: Enoxaparin 30 MG/0.3 ML SYR SUBCUT SCH (01:42)
[2022-06-01] MEDS: NS 0.9% 1000 ml BAG 1,000 ML IV SCH ×2 (01:43→09:55)
[2022-06-01 06:46] LABS: ABS Eosinophils 0.1 10^3/ul (0-0.6); ABS Lymphocytes 1.7 10^3/ul (1.0-4.8); ABS Monocytes 0.7 10^3/ul (0-0.8); ABS Neutrophils 5.6 10^3/ul (1.5-7.7); Eosinophil % 1.6 %; Hematocrit 35 % (42-52); Hemoglobin 11.7 g/dL (14.0-18.0); Lymphocyte % 20.4 %; Mean Corpuscular HGB Conc 33 g/dL (31-36); Mean Corpuscular Hemoglobin 31 pg (27-31); Mean Corpuscular Volume 92 fL (80-94); Mean Platelet Volume 7.7 fL (7.4-10.4); Platelet Count 223 10^3/uL (150-450); Red Blood Count 3.82 10^6 /uL (4.18-5.48); Red Cell Distribution Width 14 % (10-15); White Blood Count 8.2 10^3/uL (3.5-10.8)
[2022-06-01 07:13] LABS: Calcium 8.8 mg/dL (8.6-10.3); Potassium 3.9 mmol/L (3.5-5.0); eGFR CKD-EPI 64.3 (>60)
[2022-06-01 16:55] LABS: Uric Acid 5.1 mg/dL (4.4-7.6)
[2022-06-02] MEDS: Enoxaparin 30 MG/0.3 ML SYR SUBCUT SCH (00:33)
[2022-06-02 06:20] LABS: ABS Eosinophils 0.2 10^3/ul (0-0.6); ABS Lymphocytes 1.3 10^3/ul (1.0-4.8); ABS Monocytes 0.6 10^3/ul (0-0.8); ABS Neutrophils 5.2 10^3/ul (1.5-7.7); Eosinophil % 2.6 %; Hematocrit 36 % (42-52); Hemoglobin 11.9 g/dL (14.0-18.0); Lymphocyte % 18.1 %; Mean Corpuscular HGB Conc 33 g/dL (31-36); Mean Corpuscular Hemoglobin 30 pg (27-31); Mean Corpuscular Volume 91 fL (80-94); Mean Platelet Volume 7.8 fL (7.4-10.4); Platelet Count 251 10^3/uL (150-450); Red Blood Count 3.94 10^6 /uL (4.18-5.48); Red Cell Distribution Width 14 % (10-15); White Blood Count 7.4 10^3/uL (3.5-10.8)
[2022-06-02 06:39] LABS: Calcium 8.9 mg/dL (8.6-10.3); Potassium 3.9 mmol/L (3.5-5.0); eGFR CKD-EPI 91.1 (>60)
[2022-06-02 15:25] VITALS: BP 140/62
== END 2022-06-02 19:50 | disposition home or self-care (01) ==
LOC: EDHOLD 18:37 → ED 18:37 → SUATTDRO 20:57 → MED 06-01 00:01
PROVIDERS: ADMIT Student in an Organized Health Care Education/Training Program; ATTEND Internal Medicine

== ENCOUNTER 2022-06-19 22:12 | Observation (INO) ==
[2022-06-19 22:58] LABS: ABS Eosinophils 0.2 10^3/ul (0-0.6); ABS Lymphocytes 0.7 10^3/ul (1.0-4.8); ABS Monocytes 0.9 10^3/ul (0-0.8); ABS Neutrophils 7.7 10^3/ul (1.5-7.7); Eosinophil % 1.7 %; Hematocrit 32 % (42-52); Hemoglobin 10.4 g/dL (14.0-18.0); Lymphocyte % 7.6 %; Mean Corpuscular HGB Conc 33 g/dL (31-36); Mean Corpuscular Hemoglobin 30 pg (27-31); Mean Corpuscular Volume 92 fL (80-94); Mean Platelet Volume 7.5 fL (7.4-10.4); Nucleated Red Blood Cells % 0.1; Platelet Count 281 10^3/uL (150-450); Red Blood Count 3.49 10^6 /uL (4.18-5.48); Red Cell Distribution Width 13 % (10-15); White Blood Count 9.6 10^3/uL (3.5-10.8)
[2022-06-19 23:26] LABS: High Sens Troponin Baseline 12 pg/mL (<20)
[2022-06-19 23:40] LABS: ALT 12 U/L (7-52); Albumin 3.4 g/dL (3.2-5.2); Albumin/Globulin Ratio 1.2 (1-3); Alkaline Phosphatase 118 U/L (35-149); Blood Urea Nitrogen 12 mg/dL (6-24); CO2 Carbon Dioxide 30 mmol/L (22-32); Calcium 8.5 mg/dL (8.6-10.3); Chloride 97 mmol/L (101-111); Globulin 2.8 g/dL (2-4); Glucose 149 mg/dL (70-100); Sodium 133 mmol/L (135-145); Total Protein 6.2 g/dL (6.4-8.9); eGFR CKD-EPI 77.2 (>60)
[2022-06-20] MEDS ORDERED: Lactated Ringers 1000 ml BAG 1,000 ML IV ONE (00:06)
[2022-06-20] MEDS ORDERED: Ondansetron 4 mg VIAL 2 MG/ML 2 ml VIAL IV ONE (00:06)
[2022-06-20 00:07] LABS: Magnesium 1.8 mg/dL (1.9-2.7)
[2022-06-20] MEDS ORDERED: Magnesium Sulfate IV 1GM/100ML 1 GM/100 ML BAG IV ONE (00:10)
[2022-06-20 00:15] LABS: Total Iron Binding Capacity 238 mcg/dL (250-450); Transferrin 170 mg/dL (203-362)
[2022-06-20 00:26] LABS: AST 20 U/L (13-39); Anion Gap 6 mmol/L (2-11); Potassium 3.8 mmol/L (3.5-5.0)
[2022-06-20 00:27] LABS: High Sensitivity Troponin 1 Hr 13 pg/mL (<20)
[2022-06-20 00:36] LABS: Ferritin 257.1 ng/mL (24-336)
[2022-06-20 00:46] LABS: % Iron Saturation 8 % (15-55); Iron < 20 ug/dL (50-212); Unsaturated Iron Binding 218 ug/dL
[2022-06-20] MEDS ORDERED: Enoxaparin 40 MG/0.4 ML SYR SUBCUT SCH (01:00)
[2022-06-20] MEDS ORDERED: Albuterol HFA INHALER 8 gm MDI INH PRN (01:02)
[2022-06-20] MEDS ORDERED: Iron Sucrose 200 MG in NS 0.9% 100 ml BAG 100 ML IVPB ONE (01:07)
[2022-06-20 01:56] LABS: Urine Appearance Clear; Urine Color Yellow; Urine Ketones Negative (Negative); Urine Protein Negative (Negative); Urine Specific Gravity 1.015 (1.005-1.030); Urine pH 8.5 (5.0-9.0)
[2022-06-20 01:57] LABS: Urine Bilirubin Negative (Negative); Urine Blood Negative (Negative); Urine Glucose Negative (Negative); Urine Nitrite Negative (Negative)
[2022-06-20] MEDS: Lidocaine PATCH 5% PATCH TRANSDERM SCH ×2 (04:50→07:34)
[2022-06-20 05:21] LABS: ABS Basophils 0.1 10^3/ul (0-0.2); ABS Eosinophils 0.2 10^3/ul (0-0.6); ABS Neutrophils 7.7 10^3/ul (1.5-7.7); Eosinophil % 1.9 %; Hematocrit 29 % (42-52); Hemoglobin 9.7 g/dL (14.0-18.0); Lymphocyte % 10.3 %; Mean Corpuscular HGB Conc 34 g/dL (31-36); Mean Corpuscular Hemoglobin 31 pg (27-31); Mean Corpuscular Volume 91 fL (80-94); Mean Platelet Volume 7.8 fL (7.4-10.4); Nucleated Red Blood Cells % 0.1; Platelet Count 259 10^3/uL (150-450); Red Blood Count 3.18 10^6 /uL (4.18-5.48); Red Cell Distribution Width 14 % (10-15)
[2022-06-20 05:47] LABS: Blood Urea Nitrogen 12 mg/dL (6-24); CO2 Carbon Dioxide 28 mmol/L (22-32); Calcium 7.9 mg/dL (8.6-10.3); Chloride 102 mmol/L (101-111); Glucose 124 mg/dL (70-100); Magnesium 1.9 mg/dL (1.9-2.7); Sodium 134 mmol/L (135-145); eGFR CKD-EPI 86.1 (>60)
[2022-06-20 05:50] LABS: Anion Gap 4 mmol/L (2-11)
[2022-06-20 05:57] LABS: PSA Screening Total 2.156 ng/mL (0-4.000)
[2022-06-20 06:00] LABS: TSH Ultra Thyroid Stim Horm 3.43 mcIU/mL (0.34-5.60)
[2022-06-20 06:11] LABS: Vitamin B12 1147 pg/mL (180-914)
[2022-06-20 15:26] VITALS: BP 129/45
[2022-06-21] MEDS ORDERED: Iron Sucrose 200 MG in NS 0.9% 100 ml BAG 100 ML IVPB SCH (08:00)
== END 2022-06-20 17:25 | disposition home or self-care (01) ==
LOC: EDHOLD 22:12 → ED 22:12 → SUATTDRO 06-20 00:02 → MEDTELE 06-20 02:09
PROVIDERS: ADMIT Internal Medicine; ATTEND Internal Medicine

== ENCOUNTER 2022-07-14 17:25 | Inpatient (IN) ==
[2022-07-14 21:20] LABS: Albumin 3.7 g/dL (3.2-5.2); Calcium 9.3 mg/dL (8.6-10.3); Potassium 4.4 mmol/L (3.5-5.0); Total Bilirubin 0.7 mg/dL (0.2-1.0)
[2022-07-14] MEDS ORDERED: oxyCODONE/Acetamin 5/325 mg TAB PO ONE (21:25)
[2022-07-14 21:26] LABS: Albumin/Globulin Ratio 1.1 (1-3); C Reactive Protein 316.47 mg/L (<8.01); Globulin 3.5 g/dL (2-4); Total Protein 7.2 g/dL (6.4-8.9); eGFR CKD-EPI 89.5 (>60)
[2022-07-14] MEDS ORDERED: Lidocaine 1% MPF 5 ML VIAL INJ ONE (21:34)
[2022-07-14 22:11] LABS: Hepatitis C Antibody Negative (Negative)
[2022-07-15 00:14] LABS: ABS Basophils 0.1 10^3/ul (0-0.2); ABS Lymphocytes 1.2 10^3/ul (1.0-4.8); ABS Neutrophils 6.9 10^3/ul (1.5-7.7); Eosinophil % 0.1 %; Hematocrit 30 % (42-52); Hemoglobin 9.9 g/dL (14.0-18.0); Lymphocyte % 13.2 %; Mean Corpuscular HGB Conc 33 g/dL (31-36); Mean Corpuscular Hemoglobin 29 pg (27-31); Mean Corpuscular Volume 89 fL (80-94); Mean Platelet Volume 7.5 fL (7.4-10.4); Platelet Count 359 10^3/uL (150-450); Red Blood Count 3.38 10^6 /uL (4.18-5.48); Red Cell Distribution Width 14 % (10-15); White Blood Count 9.2 10^3/uL (3.5-10.8)
[2022-07-15 00:41] LABS: Body Fluid Mono 1 %; Body Fluid Total Cells Counted 200
[2022-07-15 00:42] LABS: Body Fluid Appearance Cloudy; Body Fluid Color Yellow; Body Fluid Source Synovial Fluid
[2022-07-15 00:44] LABS: Body Fluid WBC 47792 /mcL
[2022-07-15 01:03] LABS: Uric Acid 4.7 mg/dL (4.4-7.6)
[2022-07-15] MEDS ORDERED: Vancomycin 1,250 MG in NS 0.9% 250 ml 250 ML IVPB ONE (02:00)
[2022-07-15 02:50] LABS: Erythrocyte Sed Rate > 120 mm/Hr (0-19)
[2022-07-15] MEDS ORDERED: Midazolam 5 mg/5 ml VIAL 1 mg/ml 5 ml VIAL (5 mg) ONE (02:54)
[2022-07-15] MEDS ORDERED: fentaNYL 100 mcg/2 ml 50 MCG/ML VIAL ONE ×2 (02:54→04:20)
[2022-07-15] MEDS ORDERED: HYDROmorphone 1 MG/1 ML SYRINGE IV PRN (03:21)
[2022-07-15] MEDS ORDERED: Naloxone 0.4 mg VIAL 0.4 mg/ml 1 ml VIAL IV PRN (03:21)
[2022-07-15] MEDS ORDERED: Lidocaine 2% PF 5 ML VIAL ONE (04:01)
[2022-07-15] MEDS ORDERED: Propofol 10 MG/ML 20 ML BTL ONE (04:01)
[2022-07-15] MEDS ORDERED: Ondansetron 4 mg VIAL 2 MG/ML 2 ml VIAL ONE (04:01)
[2022-07-15] MEDS ORDERED: Dexamethasone IV 4 MG/ML VIAL 1 ml VIAL ONE (04:01)
[2022-07-15] MEDS ORDERED: Ondansetron 4 mg VIAL 2 MG/ML 2 ml VIAL IV PRN (05:03)
[2022-07-15] MEDS ORDERED: Dextrose 50% Syringe 50 ml 25 GM/50 ML SYRINGE IV PUSH PRN (05:21)
[2022-07-15] MEDS ORDERED: Vancomycin 1,250 MG in NS 0.9% 250 ml 250 ML IVPB SCH (06:00)
[2022-07-15] MEDS ORDERED: Vancomycin per Pharmacy 1 EA NOTE FOLLOW UP PRN (06:10)
[2022-07-15 07:20] LABS: Hematocrit 37 % (42-52); Hemoglobin 12.1 g/dL (14.0-18.0); Mean Corpuscular HGB Conc 33 g/dL (31-36); Mean Corpuscular Hemoglobin 30 pg (27-31); Mean Corpuscular Volume 92 fL (80-94); Red Blood Count 3.99 10^6 /uL (4.18-5.48); Red Cell Distribution Width 14 % (10-15); White Blood Count 10.5 10^3/uL (3.5-10.8)
[2022-07-15 07:24] LABS: ABS Lymphocytes 0.6 10^3/ul (1.0-4.8); ABS Monocytes 0.4 10^3/ul (0-0.8); ABS Neutrophils 9.5 10^3/ul (1.5-7.7); Eosinophil % 0.1 %; Lymphocyte % 5.3 %
[2022-07-15 09:52] LABS: Platelet Count Platelets clumped. 10^3/uL (150-450)
[2022-07-15] MEDS: Vancomycin 1000 MG in NS 0.9% 250 ML IVPB SCH (15:12)
[2022-07-16] MEDS: Vancomycin 1000 MG in NS 0.9% 250 ML IVPB SCH (01:59)
[2022-07-16 07:05] LABS: Calcium 8.7 mg/dL (8.6-10.3); Potassium 4.2 mmol/L (3.5-5.0); eGFR CKD-EPI 90.7 (>60)
[2022-07-16] MEDS: Magnesium Hydroxide LIQ 30 ML UDC PO PRN (07:18)
[2022-07-16 08:05] LABS: C Reactive Protein 206.68 mg/L (<8.01)
[2022-07-16] MEDS ORDERED: Vancomycin Trough Check NOTE FOLLOW UP ONE (14:00)
[2022-07-16] MEDS: Enoxaparin 40 MG/0.4 ML SYR SUBCUT SCH (14:36)
[2022-07-16] MEDS: Ampicillin ADVAN 2 GM in NS 0.9% 100 ml BAG 100 ML IVPB SCH ×2 (16:33→20:36)
[2022-07-17] MEDS: Ampicillin ADVAN 2 GM in NS 0.9% 100 ml BAG 100 ML IVPB SCH ×4 (04:45→22:09)
[2022-07-17 05:33] LABS: ABS Basophils 0.1 10^3/ul (0-0.2); ABS Lymphocytes 1.4 10^3/ul (1.0-4.8); ABS Monocytes 0.6 10^3/ul (0-0.8); ABS Neutrophils 4.4 10^3/ul (1.5-7.7); Eosinophil % 0.6 %; Hematocrit 29 % (42-52); Hemoglobin 9.3 g/dL (14.0-18.0); Lymphocyte % 21.3 %; Mean Corpuscular HGB Conc 32 g/dL (31-36); Mean Corpuscular Hemoglobin 29 pg (27-31); Mean Corpuscular Volume 90 fL (80-94); Mean Platelet Volume 7.4 fL (7.4-10.4); Nucleated Red Blood Cells % 0.1; Platelet Count 339 10^3/uL (150-450); Red Blood Count 3.18 10^6 /uL (4.18-5.48); Red Cell Distribution Width 14 % (10-15); White Blood Count 6.5 10^3/uL (3.5-10.8)
[2022-07-17 05:54] LABS: Albumin 2.9 g/dL (3.2-5.2); C Reactive Protein 165.96 mg/L (<8.01); Calcium 8.4 mg/dL (8.6-10.3); Potassium 4.3 mmol/L (3.5-5.0); Total Bilirubin 0.4 mg/dL (0.2-1.0); Total Protein 5.9 g/dL (6.4-8.9); eGFR CKD-EPI 98.3 (>60)
[2022-07-17] MEDS: Magnesium Hydroxide LIQ 30 ML UDC PO PRN (08:44)
[2022-07-17] MEDS: Enoxaparin 40 MG/0.4 ML SYR SUBCUT SCH (12:04)
[2022-07-18] MEDS: hydrALAZINE 20 mg/ml 1 ML Vial IV IV SLOW PU PRN ×2 (00:09→23:09)
[2022-07-18] MEDS: Ampicillin ADVAN 2 GM in NS 0.9% 100 ml BAG 100 ML IVPB SCH ×4 (05:30→23:12)
[2022-07-18 09:47] LABS: ABS Basophils 0.1 10^3/ul (0-0.2); ABS Monocytes 0.8 10^3/ul (0-0.8); ABS Neutrophils 6.4 10^3/ul (1.5-7.7); Eosinophil % 0.2 %; Hematocrit 28 % (42-52); Hemoglobin 9.1 g/dL (14.0-18.0); Mean Corpuscular HGB Conc 33 g/dL (31-36); Mean Corpuscular Hemoglobin 30 pg (27-31); Mean Corpuscular Volume 91 fL (80-94); Mean Platelet Volume 7.4 fL (7.4-10.4); Nucleated Red Blood Cells % 0.1; Platelet Count 338 10^3/uL (150-450); Red Blood Count 3.04 10^6 /uL (4.18-5.48); Red Cell Distribution Width 14 % (10-15); White Blood Count 8.3 10^3/uL (3.5-10.8)
[2022-07-18 10:23] LABS: Calcium 8.3 mg/dL (8.6-10.3); Potassium 4.3 mmol/L (3.5-5.0); eGFR CKD-EPI 90.7 (>60)
[2022-07-18] MEDS ORDERED: Naloxone 0.4 mg VIAL 0.4 mg/ml 1 ml VIAL IV PRN (17:04)
[2022-07-18] MEDS ORDERED: Ondansetron 4 mg VIAL 2 MG/ML 2 ml VIAL IV PRN (17:04)
[2022-07-18] MEDS ORDERED: oxyCODONE/Acetamin 5/325 mg TAB PO PRN (17:04)
[2022-07-18] MEDS ORDERED: fentaNYL 100 mcg/2 ml 50 MCG/ML VIAL IV PRN (17:04)
[2022-07-18] MEDS ORDERED: Bupivacaine 0.5% SDV PF 30ML VIAL ONE (18:09)
[2022-07-18] MEDS ORDERED: Propofol 10 MG/ML 20 ML BTL ONE (20:32)
[2022-07-18] MEDS ORDERED: Dexamethasone IV 4 MG/ML VIAL 1 ml VIAL ONE (20:32)
[2022-07-18] MEDS ORDERED: Ondansetron 4 mg VIAL 2 MG/ML 2 ml VIAL ONE (20:32)
[2022-07-18] MEDS ORDERED: fentaNYL 100 mcg/2 ml 50 MCG/ML VIAL ONE (20:33)
[2022-07-19] MEDS: Ampicillin ADVAN 2 GM in NS 0.9% 100 ml BAG 100 ML IVPB SCH ×2 (04:58→09:58)
[2022-07-19 06:12] LABS: ABS Lymphocytes 0.4 10^3/ul (1.0-4.8); ABS Monocytes 0.4 10^3/ul (0-0.8); ABS Neutrophils 7.1 10^3/ul (1.5-7.7); Hematocrit 28 % (42-52); Hemoglobin 9.3 g/dL (14.0-18.0); Lymphocyte % 5.5 %; Mean Corpuscular HGB Conc 34 g/dL (31-36); Mean Corpuscular Hemoglobin 30 pg (27-31); Mean Corpuscular Volume 90 fL (80-94); Mean Platelet Volume 7.5 fL (7.4-10.4); Platelet Count 378 10^3/uL (150-450); Red Blood Count 3.06 10^6 /uL (4.18-5.48); Red Cell Distribution Width 14 % (10-15); White Blood Count 7.9 10^3/uL (3.5-10.8)
[2022-07-19 06:38] LABS: Albumin/Globulin Ratio 0.9 (1-3); C Reactive Protein 369.28 mg/L (<8.01); Calcium 8.8 mg/dL (8.6-10.3); Globulin 3.3 g/dL (2-4); Total Bilirubin 0.5 mg/dL (0.2-1.0); Total Protein 6.3 g/dL (6.4-8.9); eGFR CKD-EPI 92.7 (>60)
[2022-07-19] MEDS: Magnesium Hydroxide LIQ 30 ML UDC PO PRN (08:43)
[2022-07-19] MEDS: Enoxaparin 40 MG/0.4 ML SYR SUBCUT SCH (12:50)
[2022-07-19] MEDS ORDERED: Vancomycin 1,000 MG in NS 0.9% 250 ml 250 ML IVPB ONE (15:00)
[2022-07-20] MEDS: Vancomycin 1000 MG in NS 0.9% 250 ML IVPB SCH ×2 (06:38→17:29)
[2022-07-20] MEDS: Enoxaparin 40 MG/0.4 ML SYR SUBCUT SCH (12:13)
[2022-07-21] MEDS ORDERED: Vancomycin Trough Check NOTE FOLLOW UP ONE (06:00)
[2022-07-21] MEDS: Vancomycin 1000 MG in NS 0.9% 250 ML IVPB SCH ×2 (06:16→17:19)
[2022-07-21] MEDS: Enoxaparin 40 MG/0.4 ML SYR SUBCUT SCH (13:19)
[2022-07-22 04:31] LABS: ABS Basophils 0.1 10^3/ul (0-0.2); ABS Eosinophils 0.1 10^3/ul (0-0.6); ABS Lymphocytes 1.1 10^3/ul (1.0-4.8); ABS Monocytes 0.9 10^3/ul (0-0.8); ABS Neutrophils 5.5 10^3/ul (1.5-7.7); Eosinophil % 0.7 %; Hematocrit 25 % (42-52); Hemoglobin 8.1 g/dL (14.0-18.0); Lymphocyte % 14.8 %; Mean Corpuscular HGB Conc 33 g/dL (31-36); Mean Corpuscular Hemoglobin 30 pg (27-31); Mean Corpuscular Volume 89 fL (80-94); Mean Platelet Volume 7.2 fL (7.4-10.4); Platelet Count 403 10^3/uL (150-450); Red Blood Count 2.75 10^6 /uL (4.18-5.48); Red Cell Distribution Width 14 % (10-15); White Blood Count 7.6 10^3/uL (3.5-10.8)
[2022-07-22 05:26] LABS: Calcium 8.1 mg/dL (8.6-10.3); Magnesium 1.8 mg/dL (1.9-2.7); Potassium 4.1 mmol/L (3.5-5.0); eGFR CKD-EPI 100.6 (>60)
[2022-07-22] MEDS: Vancomycin 1000 MG in NS 0.9% 250 ML IVPB SCH ×2 (06:14→17:33)
[2022-07-22] MEDS: Enoxaparin 40 MG/0.4 ML SYR SUBCUT SCH (13:03)
[2022-07-23 04:35] LABS: ABS Basophils 0.1 10^3/ul (0-0.2); ABS Eosinophils 0.1 10^3/ul (0-0.6); ABS Lymphocytes 0.9 10^3/ul (1.0-4.8); ABS Monocytes 0.8 10^3/ul (0-0.8); ABS Neutrophils 7.3 10^3/ul (1.5-7.7); Eosinophil % 1.1 %; Hematocrit 25 % (42-52); Hemoglobin 8.1 g/dL (14.0-18.0); Lymphocyte % 10.1 %; Mean Corpuscular HGB Conc 33 g/dL (31-36); Mean Corpuscular Hemoglobin 29 pg (27-31); Mean Corpuscular Volume 89 fL (80-94); Mean Platelet Volume 7.1 fL (7.4-10.4); Platelet Count 449 10^3/uL (150-450); Red Blood Count 2.78 10^6 /uL (4.18-5.48); Red Cell Distribution Width 14 % (10-15); White Blood Count 9.1 10^3/uL (3.5-10.8)
[2022-07-23 05:04] LABS: Magnesium 1.7 mg/dL (1.9-2.7); Potassium 4.2 mmol/L (3.5-5.0); eGFR CKD-EPI 95.9 (>60)
[2022-07-23] MEDS: Vancomycin 1000 MG in NS 0.9% 250 ML IVPB SCH (06:03)
[2022-07-23] MEDS ORDERED: Magnesium Sulfate IV 3 GM in NS 0.9% 100 ml BAG 100 ML IVPB ONE (09:00)
[2022-07-23 11:26] VITALS: BP 125/68
[2022-07-23] MEDS: Enoxaparin 40 MG/0.4 ML SYR SUBCUT SCH (12:55)
[2022-07-23 14:25] LABS: Rapid COVID-19 Molecular Undetected (Undetected)
== END 2022-07-23 14:15 | DRG 488 ==
LOC: ED 17:25 → SSU 07-15 02:58 → OR 07-15 02:58 → SSU 07-15 04:16
PROVIDERS: ADMIT Emergency Medicine; ATTEND Pediatrics